=== PATIENT | female | born 1990 | race African-American/Black ===

== ENCOUNTER 2016-09-20 11:42 | Emergency (ER) | payer OTHER ==
[~2016-09-20] VITALS: Ht 165.1 cm; Wt 90.0 kg
[~2016-09-20 11:42] MED LIST: DIAZ5 PO; PERC5TAB12 PO
[2016-09-20 11:44] VITALS: BP 124/63; PULSE 83; RESP 18; TEMP 98.7; O2SAT 98
--- NOTE | 2016-09-20 11:48 | PD ---
Physical Exam Time Seen by Provider: 11:45 Narrative 26yo F c/o chest pain and severe ear pain bilaterally x 2 months. She had pneumonia 2 months ago, was given antibx by [facility], which she finished and says she feels like she still has pneumonia. "A little" SOB, especially in the humidity. Positive test one week ago. LMP August 20. Patient seen in triage. VS reviewed. Awaiting bed placement. Data Data Last Documented VS Vital Signs Date Time Temp Pulse Resp B/P Pulse Ox O2 Delivery O2 Flow Rate FiO2 09/20/16 11:44 98.7 83 18 124/63 98 Room Air MDM Supervised Visit with KATY: Shawnee Cervantes Sep 20, 2016 11:48
--- NOTE | 2016-09-20 12:51 | PD ---
HPI . wants to be check for Pneumonia Chief Complaint: Medical Clearance Time Seen by Provider: 12:51 Travel History International Travel<30 days: No Contact w/Intl Traveler<30days: No Traveled to known affect area: No History of Present Illness HPI 26-year-old female who tells me she took a test this weekend and it popped up positive here with complaints of possible pneumonia. Patient tells me in July 30 of this year she was diagnosed with walking pneumonia for hospital and treated on outpatient basis. She tells me that she is still having symptoms of pneumonia as far as chills. She also reports some pain in her ears that has been going on for 2 mts. She admits to sinus congestion and was told she has fluid in her ears. She is accompanied by her and child. She says Dr. Vang was her telephone station repairer, but will not see her because she has an outstanding balance with him. She has not seen her PCP in 1 year , (Fern WARREN) [facility] Past Medical History Cancer: No Cardiovascular Problems: No Diminished Hearing: No Endocrine: No Gastrointestinal Disorders: Yes (ACID REFLUX) Genitourinary: No Hepatitis: No Hiatal Hernia: No Immune Disorder: No Musculoskeletal: Yes (SCLOIOSIS) Neurologic: No Psychiatric: Yes (ANXIRTY/DEPREAAION) Reproductive: Yes (IUD CAUSING SYMPTOMS) Respiratory: No Immunizations Current: Yes Pneumonia: Yes ?: LMP: 08/20/16 Menopausal: No : 1 Para: 1 Past Surgical History Abdominal Surgery: No Body Medical Devices: NONE Cardiac Surgery: No Section: Yes Ear Surgery: No Endocrine Surgery: No Eye Surgery: No Genitourinary Surgery: No Gynecologic Surgery: Yes (C SECTION) Oral Surgery: No Thoracic Surgery: No Social History Alcohol Use: Yes (rare) Tobacco Use: Yes (cigarette per day) Substance Use: Yes (marijuana) Allergies-Medications (Allergen,Severity, Reaction): Coded Allergies: [place] (Unverified Allergy, Severe, CONGESTION, ITCHING, 12/01/15) Cat Dander (Verified Allergy, Mild, 12/01/15) Dog Dander (Verified Allergy, Mild, 12/01/15) Shellfish (Verified Allergy, Unknown, 12/01/15) SWELLING IN THROAT Reported Meds & Prescriptions Reported Meds & Active Scripts Active Review of Systems General / Constitutional: Positive: Chills, No: Fever Eyes: No: Visual changes HENT: Positive: Earache, No: Headaches Cardiovascular: No: Chest Pain or Discomfort Respiratory: No: Shortness of Breath Gastrointestinal: No: Abdominal Pain Genitourinary: No: Dysuria Musculoskeletal: No: Pain Skin: No Rash Neurologic: No: Weakness Psychiatric: No: Depression Endocrine: No: Polydipsia Hematologic/Lymphatic: No: Easy Bruising Physical Exam Narrative GENERAL: AAO x 3, no acute distress, Well-nourished, well-developed patient. SKIN: Warm and dry. No visible rashes or bruising. HEAD: Normocephalic and atraumatic. EYES: No scleral icterus. No injection or drainage. EOM intact, PERRLA ENT: No nasal drainage noted. Mucous membranes pink. Airway patent. clear effusions b/l NECK: Supple, trachea midline. No JVD. no lymphadenopathy CARDIOVASCULAR: Regular rate and rhythm without murmurs, gallops, or rubs. RESPIRATORY: Breath sounds equal bilaterally. No accessory muscle use. No rhonchi or rales. No wheezing. GASTROINTESTINAL: Abdomen soft, non-tender, nondistended. EXTREMITIES: No cyanosis or edema. BACK: No obvious deformity. NEURO: CN II-12 intact, PSYCH: AAO x 3, normal affect. Data Data Last Documented VS Vital Signs Date Time Temp Pulse Resp B/P Pulse Ox O2 Delivery O2 Flow Rate FiO2 09/20/16 12:52 86 20 117/64 99 Room Air 09/20/16 11:44 98.7 MDM Medical Decision Making Medical Screen Exam Complete: Yes Emergency Medical Condition: Yes Medical Record Reviewed: Yes Differential Diagnosis hx of pneumonia, sinusitis, allergic rhinitis Narrative Course 26-year-old female here with complaints of earache for 2 months as well as history of pneumonia. On examination she does have clear effusions, but does not have any evidence of acute sinus infection. Her lungs are clear. I do not suspect pneumonia. I have discussed the case with my attending Dr. Webber. We do not recommend as patient is telling me she is . We have opted to offer azithromycin outpatient and have her f/u with her PCP and telephone station repairer. Azithromycin will cover both pneumonia and acute sinuitis. I go back and discuss this with the patient. She then tells me that she needs an ultrasound to date her . She says she can't get in with a new primary care doctor or INHALATION THERAPY AIDES TEACHER until she gets an exact date via ultrasound. She was told to come to the emergency room for an ultrasound. I advised her that she was not having any related complaints. She does not have any vaginal bleeding. She then goes on to tell me she is now having cramping and wants an ultrasound. I explained to her that I will not be performing ultrasound to date a . Patient became very upset and started crying. She tells me she keeps getting bad news and no one wants to help her. She pulled off her hospital gown and walked out of the exam room. I asked her if she wanted the antibiotics and she yelled, "NO." Diagnosis Primary Impression: Left against medical advice Disposition: 07 AGAINST MEDICAL ADVICE Condition: Stable Megan Escalona Sep 20, 2016 12:51
[2016-09-20 12:52] VITALS: BP 117/64; PULSE 86; RESP 20; O2SAT 99
[2016-10-04] MEDS ORDERED: PREN1CAP7 PO (15:57)
[2016-10-07] MEDS ORDERED: METR500T10 PO (12:55)
[2016-10-28] MEDS ORDERED: TERC0.8C VAGINAL (16:26)
== END 2016-09-20 13:08 | disposition left against medical advice (07) ==
LOC: NEPD 11:42
DX: R07.9 Chest pain, unspecified (principal)
CPT/HCPCS: 99281

== ENCOUNTER 2016-11-09 12:42 | Emergency (ER) | payer OTHER ==
[~2016-11-09] VITALS: Ht 165.1 cm; Wt 93.0 kg
[~2016-11-09 12:42] MED LIST changes: -DIAZ5 PO; -PERC5TAB12 PO; +PREN1CAP7 PO; +TERC0.8C VAGINAL
[2016-11-09 12:44] VITALS: BP 128/68; PULSE 89; RESP 18; TEMP 98.1; O2SAT 99
--- NOTE | 2016-11-09 12:49 | PD ---
Physical Exam Time Seen by Provider: 12:47 Narrative 11 weeks gestation. History of eczema and allergies. Presents to ED for evaluation of pruritic rash on thighs, arms and chest worsening over the last week. Has swelling lips today. No recent illnesses. No new exposures. No other symptoms. Data Data Last Documented VS Vital Signs Date Time Temp Pulse Resp B/P (MAP) Pulse Ox O2 Delivery O2 Flow Rate FiO2 11/09/16 14:37 85 19 124/62 (82) 100 11/09/16 12:44 98.1 Room Air [facility] Medical Record Reviewed: Yes Supervised Visit with KATY: No Scripts Hydrocortisone Topical (Hydrocortisone Topical) 0.5% Cream 1 APPLIC TOPICAL BID for Rash/Inflammation for 10 Days, #30 GM 0 Refills Apply to affected area(s) Prov: Inge Camara DO 11/09/16 Cromolyn Nasal Inh (Cromolyn Nasal Inh) 5.2 Mg/Act [place] 2 SPRAY EACH NARE TID for Asthma Management for 10 Days, #1 INHALER 0 Refills 1 spray per nostril Prov: Inge Camara DO 11/09/16 Loratadine (Allergy Relief) 10 Mg Tab 10 MG PO DAILY for 30 Days, #30 TAB Prov: Inge Camara DO 11/09/16 Condition: Stable Anju Cuba Nov 09, 2016 12:49
--- NOTE | 2016-11-09 14:28 | PD ---
HPI Chief Complaint: Skin Problem Time Seen by Provider: 14:15 Travel History International Travel<30 days: No Contact w/Intl Traveler<30days: No Traveled to known affect area: No History of Present Illness HPI 26 YO , 11 week (by [place]) female with PMH of preeclampsia (last baby born at 29 weeks) eczema and seasonal allergies presents to the ED for evaluation of 1 week history of pruritic rash of the bilateral thighs, arms and breasts. Patient states that symptoms have worsened over the last week. She states that when she woke up this morning she felt as if her lips were swollen, resolved on presentation. She endorses chronic allergic rhinitis. She denies any breathing difficulties, itchy throat or problems swallowing. She denies any recent illness, new exposures or sick contacts. She denies abdominal pain or vaginal bleeding. She states that she has been taking antihistamines intermittently with no improvement of symptoms. [facility] care by [facility]. PFSH Past Medical History Cancer: No Cardiovascular Problems: No Diminished Hearing: No Endocrine: No Gastrointestinal Disorders: Yes (ACID REFLUX) Genitourinary: No Hepatitis: No Hiatal Hernia: No Immune Disorder: No Musculoskeletal: Yes (SCLOIOSIS) Neurologic: No Psychiatric: Yes (ANXIETY/DEPRESSION) Reproductive: Yes (IUD CAUSING SYMPTOMS) Respiratory: No Immunizations Current: Yes Pneumonia: Yes ?: LMP: 08/20/16 Menopausal: No : 1 Para: 1 Past Surgical History Abdominal Surgery: No Body Medical Devices: NONE Cardiac Surgery: No Section: Yes Ear Surgery: No Endocrine Surgery: No Eye Surgery: No Genitourinary Surgery: No Gynecologic Surgery: Yes (C SECTION) Oral Surgery: No Thoracic Surgery: No Other Surgery: Yes Social History Alcohol Use: Yes (rare) Tobacco Use: No Substance Use: No Allergies-Medications (Allergen,Severity, Reaction): Coded Allergies: tree and shrub pollen (Unverified Allergy, Severe, CONGESTION, ITCHING, ) cat dander (Unverified Allergy, Mild, 11/02/16) dog dander (Unverified Allergy, Mild, 11/02/16) shellfish derived (Unverified Allergy, Unknown, 11/02/16) SWELLING IN THROAT Reported Meds & Prescriptions Reported Meds & Active Scripts Active Hydrocortisone Topical (Hydrocortisone) 0.5% Cream 1 Applic TOPICAL BID 10 Days Apply to affected area(s) Cromolyn Nasal Inh 5.2 Mg/Act [place] 2 [place] EACH NARE TID 10 Days 1 spray per nostril Allergy Relief (Loratadine) 10 Mg Tab 10 Mg PO DAILY 30 Days Terconazole Vaginal Cream 0.8 % Cream 1 Appl VAGINAL HS For 3 days. Citranatal [place] ( W/O Vit A W/ Fe Fumar) 27-1-260 Mg Cap 1 Cap PO DAILY Citranatal Dolph ( W/O Vit A W/ Fe Fumar) 27-1-260 Mg Cap 1 Cap PO DAILY Review of Systems Except as stated in HPI: all other systems reviewed are Neg Physical Exam Narrative GENERAL: Well-nourished, well-developed female in no acute distress. SKIN: Warm and dry. There is a maculopapular, mildly erythematous, blanching, scattered rash on the bilateral inner thighs, inner arms and across the chest. Scattered excoriations. Consistent with atopic dermatitis. HEAD: Normocephalic. Atraumatic. EYES: No scleral icterus. No injection or drainage. PERRLA. EOMI. ENT: Pearly moore tympanic membranes bilaterally. Nasal mucosa is moist. Oropharynx without erythema, edema or exudate. Uvula midline. Floor the mouth is soft. Airway patent. NECK: Supple, trachea midline. No JVD or lymphadenopathy. CARDIOVASCULAR: Regular rate and rhythm without murmurs, gallops, or rubs. RESPIRATORY: Breath sounds clear and equal bilaterally. No accessory muscle use. GASTROINTESTINAL: Abdomen soft, non-tender, nondistended. + Bowel sounds MUSCULOSKELETAL: No cyanosis, or edema. Patient moves extremities spontaneously. She moves easily from standing to sitting position. BACK: Nontender without obvious deformity. No CVA tenderness. Data Data Last Documented VS Vital Signs Date Time Temp Pulse Resp B/P (MAP) Pulse Ox O2 Delivery O2 Flow Rate FiO2 11/09/16 14:37 85 19 124/62 (82) 100 11/09/16 12:44 98.1 Room Air MDM Medical Decision Making Medical Screen Exam Complete: Yes Emergency Medical Condition: Yes Differential Diagnosis atopic dermatitis versus urticaria versus pruritis gravidarum versus allergic rhinitis versus contact dermatitis versus other Narrative Course 26 YO , 11 week (by [place]) female with PMH of preeclampsia (last baby born at 29 weeks) eczema and seasonal allergies presents to the ED for evaluation of 1 week history of pruritic rash of the bilateral thighs, arms and breasts. She states that when she woke up this morning she felt as if her lips were swollen, resolved on presentation. She endorses chronic allergic rhinitis. She denies any breathing difficulties, itchy throat or problems swallowing, recent illness, new exposures, sick contacts, abdominal pain or vaginal bleeding. [facility] visit [facility]/16. Vitals reviewed. Physical exam reveals a well-appearing, overweight black female in no acute distress. The ENT exam reveals bluish, boggy nasal mucosa as well as posterior oropharyngeal cobblestoning. Uvula is midline. The airway is patent. The floor the mouth is soft. She does have a scattered, maculopapular , blanching rash distributed over bilateral inner thighs, bilateral arms and across the chest. No evidence of purpura. Suspect this is atopic dermatitis and seasonal allergies. I reviewed up-to-date for the latest recommendations on atopic dermatitis and . I prescribed 10 mg loratadine daily, 0.5% hydrocortisone cream topically twice a day and cromolyn nasal spray one puff each nostril 3 times a day when necessary. Dr. Camara also evaluated the patient. We advised the patient that if she is uncomfortable with these medications she may take them to her OB for further recommendations. Patient indicated understanding of instructions and is agreeable with the care plan. She is stable and discharged home. Diagnosis Primary Impression: Atopic dermatitis Qualified Codes: L20.9 - Atopic dermatitis, unspecified Additional Impression: Seasonal allergic rhinitis Qualified Codes: J30.2 - Other seasonal allergic rhinitis Referrals: [facility] Patient Instructions: Allergies (ED), Dermatitis (ED), General Instructions Additional Instructions: Rest, hydrate. Take medications as prescribed. Apply the topical cream to affected areas twice a day as prescribed. Avoid hot baths or shower as this can worsen the rash. If you feel uncomfortable taking these medications, please consult with your OB/ FLIGHT TEST SUPERVISOR before administration. Return to the ED for worsening symptoms or any urgent or emergent medical condition. Med/Other Pt SpecificInfo: Prescription(s) given Scripts Hydrocortisone Topical (Hydrocortisone Topical) 0.5% Cream 1 APPLIC TOPICAL BID for Rash/Inflammation for 10 Days, #30 GM 0 Refills Apply to affected area(s) Prov: Inge Camara DO 11/09/16 Cromolyn Nasal Inh (Cromolyn Nasal Inh) 5.2 Mg/Act [place] 2 SPRAY EACH NARE TID for Asthma Management for 10 Days, #1 INHALER 0 Refills 1 spray per nostril Prov: Inge Camara DO 11/09/16 Loratadine (Allergy Relief) 10 Mg Tab 10 MG PO DAILY for 30 Days, #30 TAB Prov: Inge Camara DO 11/09/16 Disposition: 01 DISCHARGE HOME Condition: Stable Tanja Savage Nov 09, 2016 14:28
[2016-11-09] MEDS ORDERED: CROM5.2S4 EACH NARE (14:33)
[2016-11-09] MEDS ORDERED: ALLE10TA PO (14:33)
[2016-11-09] MEDS ORDERED: HYDRO.5%T TOPICAL (14:33)
[2016-11-09 14:37] VITALS: BP 124/62
== END 2016-11-09 15:29 | disposition home or self-care (01) ==
LOC: NEPD 12:42
DX: O99.711 Diseases of the skin and subcutaneous tissue complicating pregnancy, first trimester (principal); L20.9 Atopic dermatitis, unspecified; O99.511 Diseases of the respiratory system complicating pregnancy, first trimester; J30.2 Other seasonal allergic rhinitis; Z3A.11 11 weeks gestation of pregnancy
CPT/HCPCS: 99283

== ENCOUNTER → 2016-11-17 | Outpatient (CLI) | payer OTHER ==
[~2016-11-17] MED LIST changes: +ALLE10TA PO; +CROM5.2S4 EACH NARE; +HYDRO.5%T TOPICAL
== END ==
LOC: HPND 09:42
PROVIDERS: ATTEND Obstetrics & Gynecology
DX: O99.211 Obesity complicating pregnancy, first trimester (principal); O09.291 Supervision of pregnancy with other poor reproductive or obstetric history, first trimester; O09.211 Supervision of pregnancy with history of pre-term labor, first trimester; O34.219 Maternal care for unspecified type scar from previous cesarean delivery; E66.9 Obesity, unspecified; Z68.33 Body mass index [BMI] 33.0-33.9, adult
CPT/HCPCS: 36415; 76813

== ENCOUNTER → 2016-12-22 | Outpatient (CLI) | payer OTHER, MEDICAID ==
[~2016-12-22] MED LIST changes: -ALLE10TA PO; +LORA-650 PO
== END ==
LOC: HPND 10:04
PROVIDERS: ATTEND Obstetrics & Gynecology
DX: O09.292 Supervision of pregnancy with other poor reproductive or obstetric history, second trimester (principal)
CPT/HCPCS: 76811

== ENCOUNTER 2017-01-02 15:02 | Emergency (ER) | payer OTHER, MEDICAID ==
[~2017-01-02] VITALS: Ht 165.1 cm; Wt 98.9 kg
--- NOTE | 2017-01-02 16:00 | PD ---
HPI Chief Complaint cramping Date Seen: Jan 02, 2017 Time Seen: 15:53 Travel History International Travel<30 Days: No Contact w/Intl Traveler<30Days: No Known Affected Area: No History of Present Illness HPI Pt is a 26y/o @ 20.2wks. She has PNC with Dr. Vang. She presents to the hospital with abdominal cramping. She states that she has been having upper abdominal discomfort (located just below xyphoid) and lower pelvic discomfort (one side at a time) for weeks. It is worse at night and not affected by movement. She states that it comes every few hours and lasts for 30 seconds. She denies LOF or VB. Starting to feel FM. Denies dysuria. Weeks Gestation: 28 Para: 1 : 2 History Past Medical History Narrative Medical anxiety / depression Obstetric History Obstetric History G1. at 29 weeks for preE G2. current, on ASA 81mg qday Past Surgical History Narrative Surgical CSx1 wisdom teeth extraction Family History Family History: Negative Social History Alcohol Use: No Tobacco Use: No Substance Abuse: No Allergies-Medications (Allergen,Severity, Reaction): Coded Allergies: tree and shrub pollen (Verified Allergy, Severe, CONGESTION, ITCHING, ) cat dander (Verified Allergy, Mild, 01/02/17) dog dander (Verified Allergy, Mild, 01/02/17) shellfish derived (Verified Allergy, Unknown, 01/02/17) SWELLING IN THROAT Home Meds Active Scripts Hydrocortisone Topical (Hydrocortisone Topical) 0.5% Cream, 1 APPLIC TOPICAL BID for Rash/Inflammation for 10 Days, #30 GM 0 Refills Apply to affected area(s) Prov:Inge Camara DO 11/09/16 Cromolyn Nasal Inh (Cromolyn Nasal Inh) 5.2 Mg/Act [place], 2 SPRAY EACH NARE TID for Asthma Management for 10 Days, #1 INHALER 0 Refills 1 spray per nostril Prov:Inge Camara DO 11/09/16 Loratadine (Allergy Relief) 10 Mg Tab, 10 MG PO DAILY for 30 Days, #30 TAB Prov:Inge Camara DO 11/09/16 Terconazole Vaginal Cream (Terconazole Vaginal Cream) 0.8 % Cream, 1 APPL VAGINAL HS for Fungal Infection, #20 GM 0 Refills For 3 days. Prov:Aurea Bose CNM [facility] 10/28/16 W/O Vit A W/ Fe Fumar (Citranatal [place]) 27-1-260 Mg Cap, 1 CAP PO DAILY for Nutritional Supplement, #30 CAP 0 Refills Prov:Aurea Bose CNM [facility] 10/04/16 W/O Vit A W/ Fe Fumar (Citranatal [place]) 27-1-260 Mg Cap, 1 CAP PO DAILY for Nutritional Supplement, #30 CAP 0 Refills Prov:Aurea Bose CNM [facility] 10/04/16 Review of Systems Except as stated in HPI: all other systems reviewed are Neg Physical Exam Narrative General: well developed, well nourished, no acute distress HEENT: normocephalic atraumatic, extraocular movements intact, neck supple Abdomen: soft, gravid, nontender, nondistended Uterus: fundus soft Extremities: full range of motion Skin: normal coloration, no rashes, no suspicious skin lesions noted Neurologic: cranial nerves 2-12 grossly intact, normal muscle tone, normal gait Psychiatric: normal mood and affect, appropriate FHTs: present Earlimart: quiet Cvx: deferred Data Data Vital Signs Reviewed: Yes Orders Orders Vital Signs (Adult) .ON ADMISSION (01/02/17 15:44) ^ Labor Status (01/02/17 15:44) Urinalysis - C+S If Indicated (01/02/17 15:44) Labs Laboratory Tests Test 01/02/17 15:20 MDM Plan 26y/o @ 20.2wks with cramping. -- UA -- toco quiet -- +FCA -- may be adhesive disease or round ligament pain -- BPs normal Dispo: stable for d/c home with precautions Diagnosis Diagnosis: Primary Impression: 20 weeks gestation of Additional Impressions: History of delivery History of delivery, currently in second trimester History of pre-eclampsia in prior , currently in second trimester Abdominal cramping affecting , antepartum Brendon Coffey MD Jan 02, 2017 16:00
[2017-01-02 16:19] LABS: BLOOD, URINE MOD (NEG); COMMENT (UR) CULT NOT INDICATED; CULTURE IF INDICATED CULT NOT INDICATED; GLUCOSE,URINE NEG (NEG); KETONE, URINE NEG (NEG); MUCUS URINE FEW /lpf (OCC); NITRITE,URINE NEG (NEG); PH, URINE 6.5 (5.0-8.5); SQUAMOUS EPITHELIAL CELL URINE 9 /hpf (0-5); URINE COLOR YELLOW (YELLW/STRAW)
== END 2017-01-02 16:46 | disposition home or self-care (01) ==
LOC: HOBED 15:02
DX: O26.892 Other specified pregnancy related conditions, second trimester (principal); Z3A.20 20 weeks gestation of pregnancy
CPT/HCPCS: 81001; 99284

== ENCOUNTER 2017-01-23 10:18 | Emergency (ER) | payer OTHER, MEDICAID ==
--- NOTE | 2017-01-23 11:01 | PD ---
HPI Chief Complaint Crampy abdominal pain for a month Date Seen: Jan 23, 2017 Time Seen: 10:55 Travel History International Travel<30 Days: No Contact w/Intl Traveler<30Days: No Known Affected Area: No History of Present Illness HPI Patient is 26-year-old black female at [address] Vang for care. She presents complaining of lower abdominal pain crampy in nature for a-month waxes and wanes and her doctor told her to come in the ED if it happened again so she is here. She complains of pain in the lower abdomen bilaterally about the same she is moaning and moving somewhat , heart rate tracing is within normal limits for 23 weeks and no contractions seen Weeks Gestation: 23 Para: 1 : 2 History Obstetric History Obstetric History She had a at 29 weeks for severe preeclampsia last time was not labor but the hypertensive disorder that caused her delivery Past Surgical History Narrative Surgical 1 Family History Family History: Social History Alcohol Use: No Tobacco Use: No Substance Abuse: No Allergies-Medications (Allergen,Severity, Reaction): Coded Allergies: tree and shrub pollen (Verified Allergy, Severe, CONGESTION, ITCHING, ) cat dander (Verified Allergy, Mild, 01/02/17) dog dander (Verified Allergy, Mild, 01/02/17) shellfish derived (Verified Allergy, Unknown, 01/02/17) SWELLING IN THROAT Home Meds Active Scripts Acetaminophen-Codeine (Tylenol-Codeine #3) 300-30 mg Tab, 1-2 TAB PO Q6H Y for PAIN for 7 Days, #20 TAB 0 Refills Prov:Piyush Springer II, MD 01/23/17 Hydrocortisone Topical (Hydrocortisone Topical) 0.5% Cream, 1 APPLIC TOPICAL BID for Rash/Inflammation for 10 Days, #30 GM 0 Refills Apply to affected area(s) Prov:Inge Camara DO 11/09/16 Cromolyn Nasal Inh (Cromolyn Nasal Inh) 5.2 Mg/Act [place], 2 SPRAY EACH NARE TID for Asthma Management for 10 Days, #1 INHALER 0 Refills 1 spray per nostril Prov:Inge Camara DO 11/09/16 Loratadine (Allergy Relief) 10 Mg Tab, 10 MG PO DAILY for 30 Days, #30 TAB Prov:Inge Camara DO 11/09/16 Terconazole Vaginal Cream (Terconazole Vaginal Cream) 0.8 % Cream, 1 APPL VAGINAL HS for Fungal Infection, #20 GM 0 Refills For 3 days. Prov:BoseAurea [facility]oo[facility] 10/28/16 W/O Vit A W/ Fe Fumar (Citranatal [place]) 27-1-260 Mg Cap, 1 CAP PO DAILY for Nutritional Supplement, #30 CAP 0 Refills Prov:[facility] 10/04/16 W/O Vit A W/ Fe Fumar (Citranatal [place]) 27-1-260 Mg Cap, 1 CAP PO DAILY for Nutritional Supplement, #30 CAP 0 Refills Prov:Aurea Bose [facility] 10/04/16 Review of Systems General / Constitutional: No: Fever, Weight Gain, Chills, Other Eyes: No: Diploplia, Blurred Vision, Visual changes, Pain, Photophobia HENT: No: Headaches, Vertigo, Lightheadedness Cardiovascular: No: Irregular Rhythm, Chest Pain or Discomfort, Palpitations, Tachycardia, Syncope, Varicosities, Edema, Cyanosis Respiratory: No: Cough, Short of Breath, Other Gastrointestinal: Abdominal Pain, No: Nausea, Vomiting, Diarrhea Genitourinary: No: Decreased Urinary Output, Oliguria Musculoskeletal: No: Limited ROM, Weakness, Cramping, Edema, Pain Skin: No Rash, No Itching, No Dryness, No Lumps, No Change in Pigmentation, No Change in Nails, No Alopecia, No Lesions Neurologic: No: Weakness, Dizziness, Syncope, Focal Abnormalities, Coordination Problem, Headache, Slurred Speech, Seizures Psychiatric: No: Depression, Suicidal Ideations, Homicidal Ideation Endocrine: No: Heat Intolerance, Cold Intolerance, Polydipsia, Polyuria, Other Physical Exam Narrative GENERAL: Well-nourished, well-developed patient. SKIN: Warm and dry. HEAD: Normocephalic and atraumatic. EYES: No scleral icterus. No injection or drainage. ENT: No nasal drainage noted. Mucous membranes pink. Airway patent. NECK: Supple, trachea midline. No JVD. CARDIOVASCULAR: Regular rate and rhythm without murmurs, gallops, or rubs. RESPIRATORY: Breath sounds equal bilaterally. No accessory muscle use. BREASTS: Bilateral exam showed no masses , no retractions, no nipple discharge. ABDOMEN/GI: Abdomen soft, 1+-tender, bowel sounds present, no rebound, no guarding Gravid to [23-] weeks size Fundal Height: [near umbilicus-] GENITOURINARY: External Genitalia: intact and normal in appearance BUS glands: [-] Cervix: [-] Dilatation: [-Closed] Effacement: [-thick] Station: [high-] Membranes: [intact ] Uterine Contractions: [none-] FHT's: Category: [-1] Baseline: [133-] Reactive: [yes for 23 wks-] Variability: [mod-] Decels: [-0] EXTREMITIES: No cyanosis or edema. BACK: Nontender without obvious deformity. No CVA tenderness. NEUROLOGICAL: Awake and alert. Motor and sensory grossly within normal limits. Five out of 5 muscle strength in all muscle groups. Normal speech. Data Data Labs Urine dipstick on OB ED is negative except for large amount of blood MDM Interpretation(s) 26-year-old white female at [address] Vang for care presents complaining of lower abdominal pain for months now comes and goes with his bad now she describes is a 8 or 9 out of 10, she has no contractions and cervix is closed very high. OB ED urine dipstick shows all negative except for large amount of occult blood and this could be a small kidney stone she's trying to pass but there is no infection there , heart tones are within normal limits that she's not romero Plan The patient to receive IV Demerol Phenergan and that has helped quite a bit with her pain. That also home with Tylenol 3 for pain. She is to increase her fluids and pushes fluids to flush bladder; flush out that stone if present, increased bedrest heating pad lower lower abdomen or cervix soaking in a hot bath if pain is not better in the next 48 hours she needs to see Dr. Vang for further care possibly a renal ultrasound or pyelogram Diagnosis Diagnosis: Primary Impression: Bilateral lower abdominal cramping Additional Impressions: Previous section 23 weeks gestation of Renal stone Disposition: DISCHARGE HOME Condition: Stable Scripts Acetaminophen-Codeine (Tylenol-Codeine #3) 300-30 mg Tab 1-2 TAB PO Q6H Y for PAIN for 7 Days, #20 TAB 0 Refills Prov: Piyush Springer II, MD 01/23/17 Piyush Springer II, MD Jan 23, 2017 11:01
[2017-01-23] MEDS ORDERED: MEPERIDINE HCL 50 MG/ML VIAL IM ONE (11:15)
[2017-01-23] MEDS ORDERED: PROMETHAZINE INJ 25 MG/ML VIAL IM ONE (11:15)
[2017-01-23] MEDS ORDERED: TYLETAB34 PO (11:52)
[2017-01-23 12:25] LABS: BACTERIA, URINE RARE /hpf; BILIRUBIN, URINE NEG (NEG); BLOOD, URINE LARGE (NEG); GLUCOSE,URINE NEG (NEG); KETONE, URINE NEG (NEG); MUCUS URINE FEW /lpf (OCC); NITRITE,URINE NEG (NEG); SQUAMOUS EPITHELIAL CELL URINE 1 /hpf (0-5); URINE COLOR YELLOW (YELLW/STRAW); URINE LEUKOCYTE ESTERASE NEG (NEG)
== END 2017-01-23 14:05 | disposition home or self-care (01) ==
LOC: HOBED 10:18
DX: O26.892 Other specified pregnancy related conditions, second trimester (principal); R10.30 Lower abdominal pain, unspecified; N20.0 Calculus of kidney; Z3A.23 23 weeks gestation of pregnancy; Z79.899 Other long term (current) drug therapy
CPT/HCPCS: 81001; 96372; 99284; J2175; J2550

== ENCOUNTER → 2017-02-10 | Outpatient (CLI) | payer OTHER, MEDICAID ==
[~2017-02-10] MED LIST changes: +TYLETAB34 PO
== END ==
LOC: HPND 10:10
PROVIDERS: ATTEND Obstetrics & Gynecology
DX: O09.292 Supervision of pregnancy with other poor reproductive or obstetric history, second trimester (principal)
CPT/HCPCS: 76816

== ENCOUNTER 2017-03-13 15:23 | Emergency (ER) | payer MEDICAID, OTHER ==
--- NOTE | 2017-03-13 16:35 | PD ---
HPI Chief Complaint pelvic pressure Date Seen: Mar 13, 2017 Time Seen: 16:32 Travel History International Travel<30 Days: No Contact w/Intl Traveler<30Days: No Known Affected Area: No History of Present Illness HPI Pt is a 26t/o @ 30.2wks. She has PNC with Dr. Vang. She presented for evaluation b/c she woke up this morning and felt pelvic pressure/pain in the vagina. She denies LOF, VB, ctx. +FM. is c/b h/o CS x1 at 29wks for severe preE. She is on ASA 81mg qday. Weeks Gestation: 30 Para: 1 : 2 History Past Medical History Medical History: Denies Significant Hx Obstetric History Obstetric History 1. 29wk c/s for severe preE 2. current Past Surgical History Narrative Surgical c/s x1 wisdom teeth extraction Family History Family History: Negative Social History Alcohol Use: Yes (quit with ) Tobacco Use: No Substance Abuse: No Allergies-Medications (Allergen,Severity, Reaction): Coded Allergies: tree and shrub pollen (Verified Allergy, Severe, CONGESTION, ITCHING, ) cat dander (Verified Allergy, Mild, 01/02/17) dog dander (Verified Allergy, Mild, 01/02/17) shellfish derived (Verified Allergy, Unknown, 01/02/17) SWELLING IN THROAT Home Meds Active Scripts Acetaminophen-Codeine (Tylenol-Codeine #3) 300-30 mg Tab, 1-2 TAB PO Q6H Y for PAIN for 7 Days, #20 TAB 0 Refills Prov:Piyush Springer II, MD 01/23/17 Hydrocortisone Topical (Hydrocortisone Topical) 0.5% Cream, 1 APPLIC TOPICAL BID for Rash/Inflammation for 10 Days, #30 GM 0 Refills Apply to affected area(s) Prov:Inge Camara DO 11/09/16 Cromolyn Nasal Inh (Cromolyn Nasal Inh) 5.2 Mg/Act [place], 2 SPRAY EACH NARE TID for Asthma Management for 10 Days, #1 INHALER 0 Refills 1 spray per nostril Prov:Inge Camara DO 11/09/16 Loratadine (Allergy Relief) 10 Mg Tab, 10 MG PO DAILY for 30 Days, #30 TAB Prov:Inge Camara DO 11/09/16 Terconazole Vaginal Cream (Terconazole Vaginal Cream) 0.8 % Cream, 1 APPL VAGINAL HS for Fungal Infection, #20 GM 0 Refills For 3 days. Prov:Aurea Bose CNM [facility] 10/28/16 W/O Vit A W/ Fe Fumar (Citranatal [place]) 27-1-260 Mg Cap, 1 CAP PO DAILY for Nutritional Supplement, #30 CAP 0 Refills Prov:Aurea Bose CNM [facility] 10/04/16 W/O Vit A W/ Fe Fumar (Citranatal [place]) 27-1-260 Mg Cap, 1 CAP PO DAILY for Nutritional Supplement, #30 CAP 0 Refills Prov:Aurea Bose CNM [facility] 10/04/16 Review of Systems Except as stated in HPI: all other systems reviewed are Neg Physical Exam Narrative General: well developed, well nourished, no acute distress HEENT: normocephalic atraumatic, extraocular movements intact, neck supple Abdomen: soft, gravid, nontender, nondistended Extremities: full range of motion Skin: normal coloration, no rashes, no suspicious skin lesions noted Neurologic: cranial nerves 2-12 grossly intact, normal muscle tone, normal gait Psychiatric: normal mood and affect, appropriate FHTs: 130s, +accels, no decels, moderate variability, reactive [place]: quiet Cvx: closed/thick Data Data Vital Signs Reviewed: Yes Orders Orders Vital Signs (Adult) .ON ADMISSION (03/13/17 16:30) ^ Labor Status (03/13/17 16:30) Urinalysis - C+S If Indicated (03/13/17 16:30) ^ Non Stress Test (03/13/17 16:30) MDM Plan 26y/o @ 30.2wks with pelvic pressure. -- toco quiet -- cvx cl/th/hi -- UA sent -- FHTs cat 1 Dispo: pending UA will d/c home with precautions Diagnosis Diagnosis: Primary Impression: 30 weeks gestation of Additional Impressions: Pelvic pressure in History of History of pre-eclampsia in prior , currently in third trimester Brendon Coffey MD Mar 13, 2017 16:35
[2017-03-13 16:47] LABS: AMORPHOUS SEDIMENT, URINE RARE; BILIRUBIN, URINE NEG (NEG); BLOOD, URINE TRACE (NEG); GLUCOSE,URINE NEG (NEG); KETONE, URINE NEG (NEG); MUCUS URINE FEW /lpf (OCC); NITRITE,URINE NEG (NEG); SQUAMOUS EPITHELIAL CELL URINE 10 /hpf (0-5); URINE COLOR YELLOW (YELLW/STRAW); URINE LEUKOCYTE ESTERASE NEG (NEG)
== END 2017-03-13 17:14 | disposition home or self-care (01) ==
LOC: HOBED 15:23
DX: O26.893 Other specified pregnancy related conditions, third trimester (principal); R10.2 Pelvic and perineal pain; Z3A.30 30 weeks gestation of pregnancy
CPT/HCPCS: 81001; 99284

== ENCOUNTER → 2017-03-21 | Outpatient (CLI) | payer OTHER, MEDICAID | LOC: HPND 09:48 | PROVIDERS: ATTEND Obstetrics & Gynecology | DX: O09.292 Supervision of pregnancy with other poor reproductive or obstetric history, second trimester (principal) | CPT/HCPCS: 76816 ==

== ENCOUNTER 2017-04-05 12:43 | Emergency (ER) | payer OTHER, MEDICAID ==
[2017-04-05 13:59] LABS: HEMATOCRIT 30.3 % (35.0-46.0); HEMOGLOBIN 10.1 GM/DL (11.6-15.3); MEAN CELL VOLUME 71.5 FL (80.0-100.0); MEAN CORPUSCULAR HEMOGLOBIN 23.8 PG (27.0-34.0); MEAN CORPUSCULAR HGB CONC 33.2 % (32.0-36.0); MEAN PLATELET VOLUME 9.2 FL (7.0-11.0); PLATELET COUNT 196 TH/MM3 (150-450); RED BLOOD COUNT 4.23 MIL/MM3 (4.00-5.30); RED CELL DISTRIBUTION WIDTH 15.2 % (11.6-17.2); WHITE BLOOD COUNT 6.8 TH/MM3 (4.0-11.0)
[2017-04-05 14:04] LABS: BILIRUBIN, URINE NEG (NEG); BLOOD, URINE TRACE (NEG); GLUCOSE,URINE NEG (NEG); KETONE, URINE NEG (NEG); MUCUS URINE FEW /lpf (OCC); NITRITE,URINE NEG (NEG); SQUAMOUS EPITHELIAL CELL URINE 5 /hpf (0-5); URINE COLOR YELLOW (YELLW/STRAW); URINE LEUKOCYTE ESTERASE NEG (NEG)
[2017-04-05 14:22] LABS: ALBUMIN 2.4 GM/DL (3.4-5.0); AST (GOT) 10 U/L (15-37); BICARBONATE 24.3 MEQ/L (21.0-32.0); BLOOD UREA NITROGEN 8 MG/DL (7-18); CALCIUM 8.8 MG/DL (8.5-10.1); CHLORIDE 106 MEQ/L (98-107); CREATININE 0.57 MG/DL (0.50-1.00); GLOMERULAR FILTRATION RATE 156 ML/MIN (>89); GLUCOSE,RANDOM 84 MG/DL (74-106); SODIUM (NA) 137 MEQ/L (136-145)
[2017-04-05 14:24] LABS: ALT (GPT) 10 U/L (10-53)
[2017-04-05 14:26] LABS: ALKALINE PHOSPHATASE 247 U/L (45-117); TOTAL BILIRUBIN ADULT 0.1 MG/DL (0.2-1.0); TOTAL PROTEIN 7.2 GM/DL (6.4-8.2)
--- NOTE | 2017-04-05 14:53 | PD ---
HPI Chief Complaint History of preeclampsia with borderline blood pressures this Date Seen: Apr 05, 2017 Time Seen: 14:00 Travel History International Travel<30 Days: No Contact w/Intl Traveler<30Days: No Known Affected Area: No History of Present Illness HPI This 27-year-old black female at 33 weeks PCS, sees Dr. Vang care and he is asked for the patient to come to OB dating her PIH labs drawn, he is worried she may can get preeclamptic with this her blood pressures are stable at this time she has a history of severe preeclampsia requiring delivery and in the past. Her only complaint is spots in front of her eyes over the last several weeks but only very minimal headache and no other symptoms no pain. She has had some swelling in her legs but very minimal, the baby is active heart rate tracing is reactive in the note contractions Weeks Gestation: 33 Para: 1 : 2 History Obstetric History Obstetric History 1 for severe preeclampsia Past Surgical History Narrative Surgical Social History Alcohol Use: No Tobacco Use: No Substance Abuse: No Allergies-Medications (Allergen,Severity, Reaction): Coded Allergies: tree and shrub pollen (Verified Allergy, Severe, CONGESTION, ITCHING, ) cat dander (Verified Allergy, Mild, 01/02/17) dog dander (Verified Allergy, Mild, 01/02/17) shellfish derived (Verified Allergy, Unknown, 01/02/17) SWELLING IN THROAT Home Meds Active Scripts Acetaminophen-Codeine (Tylenol-Codeine #3) 300-30 mg Tab, 1-2 TAB PO Q6H Y for PAIN for 7 Days, #20 TAB 0 Refills Prov:Piyush Springer II, MD 01/23/17 Hydrocortisone Topical (Hydrocortisone Topical) 0.5% Cream, 1 APPLIC TOPICAL BID for Rash/Inflammation for 10 Days, #30 GM 0 Refills Apply to affected area(s) Prov:Inge Camara DO 11/09/16 Cromolyn Nasal Inh (Cromolyn Nasal Inh) 5.2 Mg/Act [place], 2 SPRAY EACH NARE TID for Asthma Management for 10 Days, #1 INHALER 0 Refills 1 spray per nostril Prov:Inge Camara DO 11/09/16 W/O Vit A W/ Fe Fumar (Citranatal [place]) 27-1-260 Mg Cap, 1 CAP PO DAILY for Nutritional Supplement, #30 CAP 0 Refills Prov:BoseAurea CNM [facility] 10/04/16 Discontinued Scripts Loratadine (Allergy Relief) 10 Mg Tab, 10 MG PO DAILY for 30 Days, #30 TAB Prov:JaxInge 11/09/16 Terconazole Vaginal Cream (Terconazole Vaginal Cream) 0.8 % Cream, 1 APPL VAGINAL HS for Fungal Infection, #20 GM 0 Refills For 3 days. Prov:Aurea Bose CNM [facility] 10/28/16 W/O Vit A W/ Fe Fumar (Citranatal [place]) 27-1-260 Mg Cap, 1 CAP PO DAILY for Nutritional Supplement, #30 CAP 0 Refills Prov:Aurea Bose CNM [facility] 10/04/16 Review of Systems General / Constitutional: No: Fever, Weight Gain, Chills, Other Eyes: Visual changes, No: Diploplia, Blurred Vision, Pain, Photophobia HENT: No: Headaches, Vertigo, Lightheadedness Cardiovascular: No: Irregular Rhythm, Chest Pain or Discomfort, Palpitations, Tachycardia, Syncope, Varicosities, Edema, Cyanosis Respiratory: No: Cough, Short of Breath, Other Gastrointestinal: No: Nausea, Vomiting, Diarrhea Genitourinary: No: Decreased Urinary Output, Oliguria Musculoskeletal: No: Limited ROM, Weakness, Cramping, Edema, Pain Skin: No Rash, No Itching, No Dryness, No Lumps, No Change in Pigmentation, No Change in Nails, No Alopecia, No Lesions Neurologic: No: Weakness, Dizziness, Syncope, Focal Abnormalities, Coordination Problem, Headache, Slurred Speech, Seizures Psychiatric: No: Depression, Suicidal Ideations, Homicidal Ideation Endocrine: No: Heat Intolerance, Cold Intolerance, Polydipsia, Polyuria, Other Physical Exam Narrative GENERAL: Well-nourished, well-developed patient. SKIN: Warm and dry. HEAD: Normocephalic and atraumatic. EYES: No scleral icterus. No injection or drainage. ENT: No nasal drainage noted. Mucous membranes pink. Airway patent. NECK: Supple, trachea midline. No JVD. CARDIOVASCULAR: Regular rate and rhythm without murmurs, gallops, or rubs. RESPIRATORY: Breath sounds equal bilaterally. No accessory muscle use. BREASTS: Bilateral exam showed no masses , no retractions, no nipple discharge. ABDOMEN/GI: Abdomen soft, non-tender, bowel sounds present, no rebound, no guarding Gravid to [-33] weeks size Fundal Height: [33-] GENITOURINARY: External Genitalia: intact and normal in appearance Membranes: [intact ] Uterine Contractions: [none-] FHT's: Category: [1-] Baseline: [-133] Reactive: [R-] Variability: [-mod] Decels: [-none] EXTREMITIES: No cyanosis or edema. BACK: Nontender without obvious deformity. No CVA tenderness. NEUROLOGICAL: Awake and alert. Motor and sensory grossly within normal limits. Five out of 5 muscle strength in all muscle groups. Normal speech. Data Data Orders Orders Cbc No Diff, Includes Plts (04/05/17 13:36) Comprehensive Metabolic Panel (04/05/17 13:36) Uric Acid (04/05/17 13:36) Urinalysis - C+S If Indicated (04/05/17 13:36) Labs Laboratory Tests Test 04/05/17 13:48 White Blood Count 6.8 Red Blood Count 4.23 Hemoglobin 10.1 Hematocrit 30.3 Mean Corpuscular Volume 71.5 Mean Corpuscular Hemoglobin 23.8 Mean Corpuscular Hemoglobin Concent 33.2 Red Cell Distribution Width 15.2 Platelet Count 196 Mean Platelet Volume 9.2 Urine Color YELLOW Urine Turbidity HAZY Urine pH 7.0 Urine Specific [place] 1.023 Urine Protein 30 Urine Glucose (UA) NEG Urine Ketones NEG Urine Occult Blood TRACE Urine Nitrite NEG Urine Bilirubin NEG Urine Urobilinogen LESS THAN 2.0 Urine Leukocyte Esterase NEG Urine RBC 1 Urine WBC 1 Urine Squamous Epithelial Cells 5 Urine Mucus FEW Microscopic Urinalysis Comment CULT NOT INDICATED Blood Urea Nitrogen 8 Creatinine 0.57 Random Glucose 84 Total Protein 7.2 Albumin 2.4 Calcium Level 8.8 Uric Acid 3.0 Alkaline Phosphatase 247 Aspartate Amino Transf (AST/SGOT) 10 Alanine Aminotransferase (ALT/SGPT) 10 Total Bilirubin 0.1 Sodium Level 137 Potassium Level 3.9 Chloride Level 106 Carbon Dioxide Level 24.3 Anion Gap 7 Estimat Glomerular Filtration Rate 156 MDM Interpretation(s) Patient is 27-year-old white female at 33 weeks [address] over [address]. Vang for PIH lab and rule out preeclampsia. Patient is having only some visual changes in the form of spots in front of her eyes but she is having no significant headaches abdominal pain ,malaise, significant swelling. Baby is active heart tracing is reactive and there are no regular contractions. PIH labs all within normal limits, urinalysis showed trace protein Plan Plan the patient to be discharged today home to increase her wrist as much as possible at home she does not have anything specific that would force her to bedrest but she needs to start trying to do more of that with her potential PIH issues and her history of severe preeclampsia it is best that she start to begin resting as much as she can Diagnosis Diagnosis: Primary Impression: History of pre-eclampsia in prior , currently Additional Impression: Previous section Disposition: DISCHARGE HOME Condition: Stable Piyush Springer II, MD Apr 05, 2017 14:53
== END 2017-04-05 15:10 | disposition home or self-care (01) ==
LOC: HOBED 12:43
DX: Z71.1 Person with feared health complaint in whom no diagnosis is made (principal); Z87.59 Personal history of other complications of pregnancy, childbirth and the puerperium; Z3A.33 33 weeks gestation of pregnancy
CPT/HCPCS: 36415; 59025; 80053; 81001; 84550; 85027

== ENCOUNTER 2017-04-12 12:01 | Emergency (ER) | payer OTHER, MEDICAID ==
[~2017-04-12 12:01] MED LIST changes: -LORA-650 PO; -TERC0.8C VAGINAL
[2017-04-12 14:12] LABS: HEMATOCRIT 31.1 % (35.0-46.0); HEMOGLOBIN 10.2 GM/DL (11.6-15.3); MEAN CELL VOLUME 72.1 FL (80.0-100.0); MEAN CORPUSCULAR HEMOGLOBIN 23.7 PG (27.0-34.0); MEAN PLATELET VOLUME 9.9 FL (7.0-11.0); PLATELET COUNT 199 TH/MM3 (150-450); RED BLOOD COUNT 4.32 MIL/MM3 (4.00-5.30); RED CELL DISTRIBUTION WIDTH 15.7 % (11.6-17.2); WHITE BLOOD COUNT 8.2 TH/MM3 (4.0-11.0)
[2017-04-12 14:25] LABS: BACTERIA, URINE OCC /hpf; BILIRUBIN, URINE NEG (NEG); BLOOD, URINE TRACE (NEG); CALCIUM OXALATE CRYSTALS,URINE MOD /hpf; GLUCOSE,URINE NEG (NEG); KETONE, URINE NEG (NEG); MUCUS URINE MANY /lpf (OCC); NITRITE,URINE NEG (NEG); PH, URINE 6.5 (5.0-8.5); SQUAMOUS EPITHELIAL CELL URINE 21 /hpf (0-5); URINE COLOR YELLOW (YELLW/STRAW); URINE LEUKOCYTE ESTERASE NEG (NEG)
[2017-04-12 14:33] LABS: ALBUMIN 2.4 GM/DL (3.4-5.0); AST (GOT) 11 U/L (15-37); BICARBONATE 20.5 MEQ/L (21.0-32.0); BLOOD UREA NITROGEN 9 MG/DL (7-18); CALCIUM 8.4 MG/DL (8.5-10.1); CHLORIDE 105 MEQ/L (98-107); CREATININE 0.58 MG/DL (0.50-1.00); GLOMERULAR FILTRATION RATE 153 ML/MIN (>89); GLUCOSE,RANDOM 89 MG/DL (74-106); SODIUM (NA) 136 MEQ/L (136-145)
[2017-04-12 14:37] LABS: ALKALINE PHOSPHATASE 252 U/L (45-117); ALT (GPT) 10 U/L (10-53); TOTAL BILIRUBIN ADULT 0.2 MG/DL (0.2-1.0); TOTAL PROTEIN 7.4 GM/DL (6.4-8.2)
--- NOTE | 2017-04-12 16:28 | PD ---
HPI Chief Complaint increased bp Date Seen: Apr 12, 2017 Time Seen: 16:18 Travel History International Travel<30 Days: No Contact w/Intl Traveler<30Days: No Known Affected Area: No History of Present Illness HPI pt. is a @ 34 4/7 weeks present as a referral from dr. teresa 2/2 increased bp. pt. w/ h/o severe preeclampsia in last preg w/ delivery by cd @ 29 weeks. pt. w/ noted increased bp, c/o gabriel. on presentation, pt. states gabriel and scotomata. pt. states some ctxs. +FM, no lof/vb. bp on presentation 130/72 Weeks Gestation: 34 Para: 1 : 2 History Past Medical History Medical History: Denies Significant Hx Obstetric History Obstetric History severe preeclampsia and cd in last Past Surgical History Narrative Surgical delivery Family History Family History: Negative Social History Alcohol Use: No Tobacco Use: No Substance Abuse: No Allergies-Medications (Allergen,Severity, Reaction): Coded Allergies: tree and shrub pollen (Verified Allergy, Severe, CONGESTION, ITCHING, ) cat dander (Verified Allergy, Mild, 01/02/17) dog dander (Verified Allergy, Mild, 01/02/17) shellfish derived (Verified Allergy, Unknown, 01/02/17) SWELLING IN THROAT Home Meds Active Scripts Acetaminophen-Codeine (Tylenol-Codeine #3) 300-30 mg Tab, 1-2 TAB PO Q6H Y for PAIN for 7 Days, #20 TAB 0 Refills Prov:Piyush Springer II, MD 01/23/17 Hydrocortisone Topical (Hydrocortisone Topical) 0.5% Cream, 1 APPLIC TOPICAL BID for Rash/Inflammation for 10 Days, #30 GM 0 Refills Apply to affected area(s) Prov:Inge Camara DO 11/09/16 Cromolyn Nasal Inh (Cromolyn Nasal Inh) 5.2 Mg/Act [place], 2 SPRAY EACH NARE TID for Asthma Management for 10 Days, #1 INHALER 0 Refills 1 spray per nostril Prov:Inge Camara DO 11/09/16 W/O Vit A W/ Fe Fumar (Citranatal [place]) 27-1-260 Mg Cap, 1 CAP PO DAILY for Nutritional Supplement, #30 CAP 0 Refills Prov:Aurea Bose [facility] 10/04/16 Discontinued Scripts Loratadine (Allergy Relief) 10 Mg Tab, 10 MG PO DAILY for 30 Days, #30 TAB Prov:Franchesca Camaraie 11/09/16 Terconazole Vaginal Cream (Terconazole Vaginal Cream) 0.8 % Cream, 1 APPL VAGINAL HS for Fungal Infection, #20 GM 0 Refills For 3 days. Prov:David Boseinta Haseeb JULES [facility] 10/28/16 W/O Vit A W/ Fe Fumar (Citranatal [place]) 27-1-260 Mg Cap, 1 CAP PO DAILY for Nutritional Supplement, #30 CAP 0 Refills Prov:David Boseintneeta Membreno TRES[facility] 10/04/16 Review of Systems Except as stated in HPI: all other systems reviewed are Neg Physical Exam Narrative GENERAL: Well-nourished, well-developed patient. SKIN: Warm and dry. HEAD: Normocephalic and atraumatic. EYES: No scleral icterus. No injection or drainage. ENT: No nasal drainage noted. Mucous membranes pink. Airway patent. NECK: Supple, trachea midline. No JVD. CARDIOVASCULAR: Regular rate and rhythm without murmurs, gallops, or rubs. RESPIRATORY: Breath sounds equal bilaterally. No accessory muscle use. ABDOMEN/GI: Abdomen soft, non-tender, bowel sounds present, no rebound, no guarding Gravid FHT's: Category: 1 Reactive: + Variability: mod Decels: none EXTREMITIES: No cyanosis or edema. BACK: Nontender without obvious deformity. No CVA tenderness. NEUROLOGICAL: Awake and alert. Motor and sensory grossly within normal limits. Five out of 5 muscle strength in all muscle groups. Normal speech. Data Data Vital Signs Reviewed: Yes Orders Orders Cbc No Diff, Includes Plts (04/12/17 13:44) Comprehensive Metabolic Panel (04/12/17 13:44) Uric Acid (04/12/17 13:44) Urinalysis - C+S If Indicated (04/12/17 13:44) Protein Creat Ratio, Random Ur (04/12/17 14:34) Labs Laboratory Tests Test 04/12/17 13:27 White Blood Count 8.2 Red Blood Count 4.32 Hemoglobin 10.2 Hematocrit 31.1 Mean Corpuscular Volume 72.1 Mean Corpuscular Hemoglobin 23.7 Mean Corpuscular Hemoglobin Concent 33.0 Red Cell Distribution Width 15.7 Platelet Count 199 Mean Platelet Volume 9.9 Urine Color YELLOW Urine Turbidity HAZY Urine pH 6.5 Urine Specific [place] 1.028 Urine Protein 30 Urine Glucose (UA) NEG Urine Ketones NEG Urine Occult Blood TRACE Urine Nitrite NEG Urine Bilirubin NEG Urine Urobilinogen 2.0 Urine Leukocyte Esterase NEG Urine RBC 3 Urine WBC 3 Urine Squamous Epithelial Cells 21 Urine Calcium Oxalate Crystals MOD Urine Bacteria OCC Urine Mucus MANY Microscopic Urinalysis Comment CULT NOT INDICATED Urine Random Creatinine 324 Urine Random Total Protein 60 Urine Protein/Creatinine Ratio 0.19 Blood Urea Nitrogen 9 Creatinine 0.58 Random Glucose 89 Total Protein 7.4 Albumin 2.4 Calcium Level 8.4 Uric Acid 3.2 Alkaline Phosphatase 252 Aspartate Amino Transf (AST/SGOT) 11 Alanine Aminotransferase (ALT/SGPT) 10 Total Bilirubin 0.2 Sodium Level 136 Potassium Level 3.9 Chloride Level 105 Carbon Dioxide Level 20.5 Anion Gap 11 Estimat Glomerular Filtration Rate 153 MDM Medical Record Reviewed: Yes Plan preeclampsia and pt. current condition d/w. pt. repeated bp in 130/70. labs wnl. pt. to have 24 hour urine for protein. pt. to be d/c to home. pt. given precautions for return. all ? answered. f/u as sched. Diagnosis Diagnosis: Primary Impression: Hypertension affecting Additional Impressions: 34 weeks gestation of History of pre-eclampsia in prior , currently in third trimester Disposition: 01 DISCHARGE HOME Condition: Stable Patient Instructions: General Instructions, Gestational Diabetes (ED), 24 Hour Urine Collection (GEN), Movement (ED) Departure Forms: Tests/Procedures Baljeet Wells Jr., MD Apr 12, 2017 16:28
== END 2017-04-12 16:42 | disposition home or self-care (01) ==
LOC: HOBED 12:01
DX: O16.3 Unspecified maternal hypertension, third trimester (principal); Z3A.34 34 weeks gestation of pregnancy
CPT/HCPCS: 36415; 59025; 80053; 81001; 82570; 84156; 84550; 85027

== ENCOUNTER 2017-04-13 12:48 | Emergency (ER) | payer OTHER, MEDICAID ==
[~2017-04-13] VITALS: Ht 165.1 cm; Wt 111.6 kg
--- NOTE | 2017-04-13 13:48 | PD ---
HPI Chief Complaint Leaking fluid Date Seen: Apr 13, 2017 Time Seen: 13:00 Travel History International Travel<30 Days: No Contact w/Intl Traveler<30Days: No Known Affected Area: No History of Present Illness HPI Patient is 27-year-old black female PCS at 34-[address] Vang care and presents complaining of leakage of fluid per vagina. Here on OB ED her amnisure is negative, heart tracing is reactive and there are no contractions Weeks Gestation: 34 Para: 1 : 2 Last Menstrual Period: Apr 13, 2017 History Obstetric History Obstetric History 1 that was done at 29 weeks for severe preeclampsia Past Surgical History Narrative Surgical 1 Social History Alcohol Use: No Tobacco Use: No Substance Abuse: No Allergies-Medications (Allergen,Severity, Reaction): Coded Allergies: tree and shrub pollen (Verified Allergy, Severe, CONGESTION, ITCHING, ) cat dander (Verified Allergy, Mild, 01/02/17) dog dander (Verified Allergy, Mild, 01/02/17) shellfish derived (Verified Allergy, Unknown, 01/02/17) SWELLING IN THROAT Home Meds Active Scripts Acetaminophen-Codeine (Tylenol-Codeine #3) 300-30 mg Tab, 1-2 TAB PO Q6H Y for PAIN for 7 Days, #20 TAB 0 Refills Prov:Piyush Springer II, MD 01/23/17 Hydrocortisone Topical (Hydrocortisone Topical) 0.5% Cream, 1 APPLIC TOPICAL BID for Rash/Inflammation for 10 Days, #30 GM 0 Refills Apply to affected area(s) Prov:Inge Camara DO 11/09/16 Cromolyn Nasal Inh (Cromolyn Nasal Inh) 5.2 Mg/Act [place], 2 SPRAY EACH NARE TID for Asthma Management for 10 Days, #1 INHALER 0 Refills 1 spray per nostril Prov:Inge Camara DO 11/09/16 W/O Vit A W/ Fe Fumar (Citranatal [place]) 27-1-260 Mg Cap, 1 CAP PO DAILY for Nutritional Supplement, #30 CAP 0 Refills Prov:Aurea Bose CNM CAD PROGRAMMER 10/04/16 Review of Systems General / Constitutional: No: Fever, Weight Gain, Chills, Other Eyes: No: Diploplia, Blurred Vision, Visual changes, Pain, Photophobia HENT: No: Headaches, Vertigo, Lightheadedness Cardiovascular: No: Irregular Rhythm, Chest Pain or Discomfort, Palpitations, Tachycardia, Syncope, Varicosities, Edema, Cyanosis Respiratory: No: Cough, Short of Breath, Other Gastrointestinal: No: Nausea, Vomiting, Diarrhea Genitourinary: No: Decreased Urinary Output, Oliguria Musculoskeletal: No: Limited ROM, Weakness, Cramping, Edema, Pain Skin: No Rash, No Itching, No Dryness, No Lumps, No Change in Pigmentation, No Change in Nails, No Alopecia, No Lesions Neurologic: No: Weakness, Dizziness, Syncope, Focal Abnormalities, Coordination Problem, Headache, Slurred Speech, Seizures Psychiatric: No: Depression, Suicidal Ideations, Homicidal Ideation Endocrine: No: Heat Intolerance, Cold Intolerance, Polydipsia, Polyuria, Other Physical Exam Narrative GENERAL: Well-nourished, well-developed patient. SKIN: Warm and dry. HEAD: Normocephalic and atraumatic. EYES: No scleral icterus. No injection or drainage. ENT: No nasal drainage noted. Mucous membranes pink. Airway patent. NECK: Supple, trachea midline. No JVD. CARDIOVASCULAR: Regular rate and rhythm without murmurs, gallops, or rubs. RESPIRATORY: Breath sounds equal bilaterally. No accessory muscle use. BREASTS: Bilateral exam showed no masses , no retractions, no nipple discharge. ABDOMEN/GI: Abdomen soft, non-tender, bowel sounds present, no rebound, no guarding Gravid to [-34] weeks size Fundal Height: [34-] GENITOURINARY: External Genitalia: intact and normal in appearance BUS glands: [-] Cervix: [-0] Dilatation: [0-] Effacement: [-thick] Station: [-3] Membranes: [intact amnisure neg] Uterine Contractions: [no reg CTX-] FHT's: Category: [1-] Baseline: [-133] Reactive: [-R] Variability: [mod-] Decels: [none-] EXTREMITIES: No cyanosis or edema. BACK: Nontender without obvious deformity. No CVA tenderness. NEUROLOGICAL: Awake and alert. Motor and sensory grossly within normal limits. Five out of 5 muscle strength in all muscle groups. Normal speech. Data Data Labs amnisure is negative MDM Interpretation(s) Patient is 27-year-old black female previous 134-35 weeks who presents complaining of possible leaking fluid. I am sure is negative. heart rate tracing is reactive. She is not in labor. She has had a previous section and will see Dr. Vang concerning possible versus repeat C- section in the near future Plan Plan to discharge home to observation she will return for any increase in vaginal leakage, bleeding, or abdominal pain. Otherwise she will see her OB provider in the usual fashion Diagnosis Diagnosis: Primary Impression: No leakage of amniotic fluid into vagina Additional Impressions: Previous section 34 weeks gestation of Disposition: DISCHARGE HOME Condition: Stable Piyush Springer II, MD Apr 13, 2017 13:48
== END 2017-04-13 14:08 | disposition home or self-care (01) ==
LOC: HOBED 12:48
DX: O26.93 Pregnancy related conditions, unspecified, third trimester (principal); O34.219 Maternal care for unspecified type scar from previous cesarean delivery; Z3A.34 34 weeks gestation of pregnancy; Z79.899 Other long term (current) drug therapy
CPT/HCPCS: 84112; 99284

== ENCOUNTER 2017-04-19 16:24 | Emergency (ER) | payer OTHER, MEDICAID ==
[2017-04-19 17:05] VITALS: BP 124/80; PULSE 83
[2017-04-19 17:08] VITALS: RESP 15
--- NOTE | 2017-04-19 17:28 | PD ---
History of Present Illness History of Present Illness NST report Indications: IUP at 35 weeks, history of preeclampsia, decreased movement heart tones in the 120s with moderate long-term variability, good accelerations noted, no decelerations noted. This is a category 1 heart rate tracing and a reactive NST Follow-up: Follow-up as clinically indicated Final diagnosis: IUP at 35 weeks, history of preeclampsia, decreased movement which has resolved and the patient now feels normal movement, reassuring testing with BPP 09/14 and a reactive NST for a total score of 10/10 Coretta Dennis MD Apr 19, 2017 17:28
--- NOTE | 2017-04-19 17:36 | PD ---
HPI Chief Complaint Decreased movement Travel History International Travel<30 Days: No Contact w/Intl Traveler<30Days: No Known Affected Area: No History of Present Illness HPI 27-year-old , IUP at 35.4 care complicated by history of 29 week preeclamptic delivery, history of prior delivery, depression, anemia The patient was sent over from Dr. Vang's office for decreased movement. She reports that she had been feeling movement but was decreased from previous. She now reports normal movement since arriving. She denies any leaking of fluid or vaginal bleeding. She denies any painful contractions or cramping. She denies any symptoms of preeclampsia at this time. Weeks Gestation: 35 Para: 1 : 2 History Past Medical History Narrative Medical Depression, anemia, preeclampsia Obstetric History Obstetric History 101 delivery at 29 weeks for preeclampsia delivery 1 Past Surgical History Narrative Surgical section, wisdom teeth extraction, IUD removal Family History Family History: Negative Social History Alcohol Use: No Tobacco Use: No Substance Abuse: No Allergies-Medications (Allergen,Severity, Reaction): Coded Allergies: tree and shrub pollen (Verified Allergy, Severe, CONGESTION, ITCHING, ) cat dander (Verified Allergy, Mild, 01/02/17) dog dander (Verified Allergy, Mild, 01/02/17) shellfish derived (Verified Allergy, Unknown, 01/02/17) SWELLING IN THROAT Home Meds Active Scripts Acetaminophen-Codeine (Tylenol-Codeine #3) 300-30 mg Tab, 1-2 TAB PO Q6H Y for PAIN for 7 Days, #20 TAB 0 Refills Prov:Piyush Springer II, MD 01/23/17 Hydrocortisone Topical (Hydrocortisone Topical) 0.5% Cream, 1 APPLIC TOPICAL BID for Rash/Inflammation for 10 Days, #30 GM 0 Refills Apply to affected area(s) Prov:Inge Camara DO 11/09/16 Cromolyn Nasal Inh (Cromolyn Nasal Inh) 5.2 Mg/Act [place], 2 SPRAY EACH NARE TID for Asthma Management for 10 Days, #1 INHALER 0 Refills 1 spray per nostril Prov:Inge Camara DO 11/09/16 W/O Vit A W/ Fe Fumar (Citranatal [place]) 27-1-260 Mg Cap, 1 CAP PO DAILY for Nutritional Supplement, #30 CAP 0 Refills Prov:Aurea Bose CNDiana CORE WINDING OPERATOR 10/04/16 Review of Systems Except as stated in HPI: all other systems reviewed are Neg Respiratory: Short of Breath Physical Exam Vital Signs Date Time Temp Pulse Resp B/P (MAP) Pulse Ox O2 Delivery O2 Flow Rate FiO2 04/19/17 17:08 15 04/19/17 17:05 83 124/80 (95) Narrative GENERAL: Well-nourished, well-developed patient. SKIN: Warm and dry. HEAD: Normocephalic and atraumatic. EYES: No scleral icterus. No injection or drainage. ENT: No nasal drainage noted. Mucous membranes pink. Airway patent. NECK: Supple, trachea midline. No JVD. CARDIOVASCULAR: Regular rate and rhythm without murmurs, gallops, or rubs. RESPIRATORY: Breath sounds equal bilaterally. No accessory muscle use. BREASTS: Deferred ABDOMEN/GI: Abdomen soft, non-tender, bowel sounds present, no rebound, no guarding Gravid GENITOURINARY: Deferred FHT's: heart tones in the 120s with moderate long-term variability, good accelerations, no decelerations noted. Th is a category 1 heart rate tracing and reactive NST. EXTREMITIES: No cyanosis or edema. BACK: Nontender without obvious deformity. NEUROLOGICAL: Awake and alert. Motor and sensory grossly within normal limits. Normal speech. Musculoskeletal: Grossly normal range of motion, gait, muscle strength 's psychiatric: Grossly normal memory and affect Data Data Orders Orders Vital Signs (Adult) .ON ADMISSION (04/19/17 16:34) ^ Labor Status (04/19/17 16:34) ^ Non Stress Test (04/19/17 16:34) Us Ob Bpp Wo Nst (04/19/17 16:34) MDM Plan Assessment/plan: 1. IUP at 35.4 2. Decreased movement: The patient now reports normal movement after arriving. She had a biophysical profile of 10 out of 10 with reactive NST. kick counts daily 3. No evidence of labor, strict labor precautions 4. History of preeclampsia delivery at 29 weeks': No evidence of preeclampsia at this time 5. well-being: Reassuring testing with reactive NST and biophysical profile 8/8 for a total of 11/16. As noted above the patient reports normal movement since arriving. kick counts daily. 6. Follow-up with Dr. Vang in 2-3 days or sooner if needed 7. Depression 8. Shortness of breath: The patient has reported to short episodes of shortness of breath, she was instructed to have this evaluated in the ED. 9. Anemia Diagnosis Diagnosis: Primary Impression: 35 weeks gestation of Additional Impression: Decreased movement affecting management of , antepartum Disposition: 01 DISCHARGE HOME Condition: Coretta Marie MD Apr 19, 2017 17:36
== END 2017-04-19 18:43 | disposition home or self-care (01) ==
LOC: HOBED 16:24
DX: O36.8130 Decreased fetal movements, third trimester, not applicable or unspecified (principal); Z3A.35 35 weeks gestation of pregnancy
CPT/HCPCS: 59025; 76819

== ENCOUNTER 2017-04-26 12:19 | Observation (INO) | payer OTHER, MEDICAID ==
[~2017-04-26] VITALS: Ht 162.6 cm; Wt 115.0 kg
--- NOTE | 2017-04-26 13:32 | PD ---
HPI Chief Complaint Swelling in hands and feet Date Seen: Apr 26, 2017 Travel History International Travel<30 Days: No Contact w/Intl Traveler<30Days: No Known Affected Area: No History of Present Illness HPI Patient is a 27-year-old at 36/4 weeks gestation that presents to the [facility] ED from Dr. Vang's office to be evaluated for preeclampsia. Patient states that she has been having swelling in her hands and face and has been seeing spots in her vision. She also complains of midsternal chest pain that has been on and off for the past 2 weeks. She states that the chest pain takes her breath away and kept her awake last night. Last week she had shortness of breath. She does not have any headache right now but she had a headache last night. She has also had a runny nose and has been coughing but her daughter was recently diagnosed with the flu so she thinks that she may have early symptoms of the flu. Notably, the patient had a at 29 weeks for preeclampsia. She denies contractions, leaking, or spotting. History Past Medical History Narrative Medical Depression, anemia, preeclampsia Obstetric History Obstetric History 101 delivery at 29 weeks for preeclampsia delivery 1 Past Surgical History Narrative Surgical section, wisdom teeth extraction, IUD removal Family History Family History: Negative Social History Alcohol Use: No Tobacco Use: No Substance Abuse: No Allergies-Medications (Allergen,Severity, Reaction): Coded Allergies: tree and shrub pollen (Verified Allergy, Severe, CONGESTION, ITCHING, ) cat dander (Verified Allergy, Mild, 01/02/17) dog dander (Verified Allergy, Mild, 01/02/17) shellfish derived (Verified Allergy, Unknown, 01/02/17) SWELLING IN THROAT Home Meds Active Scripts Cromolyn Nasal Inh (Cromolyn Nasal Inh) 5.2 Mg/Act [place], 2 SPRAY EACH NARE TID for Asthma Management for 10 Days, #1 INHALER 0 Refills 1 spray per nostril Prov:Inge Camara DO 11/09/16 W/O Vit A W/ Fe Fumar (Citranatal [place]) 27-1-260 Mg Cap, 1 CAP PO DAILY for Nutritional Supplement, #30 CAP 0 Refills Prov:Aurea Bose CNM GULLET SLITTER 10/04/16 Discontinued Scripts Acetaminophen-Codeine (Tylenol-Codeine #3) 300-30 mg Tab, 1-2 TAB PO Q6H Y for PAIN for 7 Days, #20 TAB 0 Refills Prov:Piyush Springer II, MD 01/23/17 Hydrocortisone Topical (Hydrocortisone Topical) 0.5% Cream, 1 APPLIC TOPICAL BID for Rash/Inflammation for 10 Days, #30 GM 0 Refills Apply to affected area(s) Prov:Inge Camara DO 11/09/16 Review of Systems Except as stated in HPI: all other systems reviewed are Neg Physical Exam Narrative GENERAL: Well-nourished, well-developed patient. SKIN: Warm and dry. HEAD: Normocephalic and atraumatic. EYES: No scleral icterus. No injection or drainage. ENT: No nasal drainage noted. Mucous membranes pink. Airway patent. NECK: Supple, trachea midline. No JVD. CARDIOVASCULAR: Regular rate and rhythm without murmurs, gallops, or rubs. RESPIRATORY: Breath sounds equal bilaterally. No accessory muscle use. ABDOMEN/GI: Abdomen soft, non-tender, bowel sounds present, no rebound, no guarding Gravid to 36 weeks size GENITOURINARY: External Genitalia: intact and normal in appearance Cervix: [-] Dilatation: [-] Effacement: [-] Station: [-] Presentation: [-] Membranes: intact Uterine Contractions: [-] FHT's: Category: I Baseline: 135 Reactive: Yes, multiple accels Variability: Moderate Decels: None EXTREMITIES: No cyanosis or edema. BACK: Nontender without obvious deformity. No CVA tenderness. NEUROLOGICAL: Awake and alert. Motor and sensory grossly within normal limits. Five out of 5 muscle strength in all muscle groups. Normal speech. Data Data Vital Signs Reviewed: Yes Orders Orders Urinalysis - C+S If Indicated (04/26/17 13:31) [facility] Medical Record Reviewed: Yes Interpretation(s) 27 year old at 36/4 weeks gestation, presents to be evaluated for preeclampsia Plan 1. IUP -Category 1 tracing, heart tones reassuring -Continue routine care 2. Preeclampsia workup -CBC: plt 165, H/H: 10.1/30.6 -CMP: AST/ALT wnl at 14/12 -Uric acid: wnl at 3.4 -Urine protein creatinine ratio: elevated at 0.30, total protein 46, random creatinine 155 Admit on observation with continuous monitoring. Repeat labs in the am. Regular diet Discussed with Nathalie Avery MD Apr 26, 2017 13:32
[2017-04-26 14:17] LABS: BACTERIA, URINE FEW /hpf; BILIRUBIN, URINE NEG (NEG); BLOOD, URINE NEG (NEG); GLUCOSE,URINE NEG (NEG); KETONE, URINE NEG (NEG); MUCUS URINE FEW /lpf (OCC); NITRITE,URINE NEG (NEG); SQUAMOUS EPITHELIAL CELL URINE 14 /hpf (0-5); URINE COLOR YELLOW (YELLW/STRAW); URINE LEUKOCYTE ESTERASE NEG (NEG)
[2017-04-26 15:42] LABS: HEMATOCRIT 30.6 % (35.0-46.0); HEMOGLOBIN 10.1 GM/DL (11.6-15.3); MEAN CELL VOLUME 72.2 FL (80.0-100.0); MEAN CORPUSCULAR HEMOGLOBIN 23.8 PG (27.0-34.0); MEAN PLATELET VOLUME 10.8 FL (7.0-11.0); PLATELET COUNT 165 TH/MM3 (150-450); RED BLOOD COUNT 4.24 MIL/MM3 (4.00-5.30); RED CELL DISTRIBUTION WIDTH 16.6 % (11.6-17.2); WHITE BLOOD COUNT 7.4 TH/MM3 (4.0-11.0)
[2017-04-26 16:10] LABS: ALBUMIN 2.4 GM/DL (3.4-5.0); ALT (GPT) 12 U/L (10-53); AST (GOT) 14 U/L (15-37); BICARBONATE 22.6 MEQ/L (21.0-32.0); BLOOD UREA NITROGEN 11 MG/DL (7-18); CALCIUM 9.1 MG/DL (8.5-10.1); CHLORIDE 105 MEQ/L (98-107); CREATININE 0.62 MG/DL (0.50-1.00); GLOMERULAR FILTRATION RATE 142 ML/MIN (>89); GLUCOSE,RANDOM 69 MG/DL (74-106); SODIUM (NA) 138 MEQ/L (136-145)
[2017-04-26 16:13] LABS: ALKALINE PHOSPHATASE 250 U/L (45-117); TOTAL BILIRUBIN ADULT 0.2 MG/DL (0.2-1.0); TOTAL PROTEIN 7.4 GM/DL (6.4-8.2)
[2017-04-26] MEDS ORDERED: SODIUM CHLORIDE 0.9% FLUSH 10 ML FLUSH IV FLUSH PRN (16:15)
[2017-04-26] MEDS ORDERED: ONDANSETRON HCL 4 MG/2 ML VIAL IV PUSH PRN (16:15)
[2017-04-26] MEDS ORDERED: ACETAMINOPHEN 325 MG TAB PO PRN (16:15)
[2017-04-26] MEDS ORDERED: ALUMINUM/MAGNESIUM/SIMETH 30 ML CUP PO PRN (16:15)
--- NOTE | 2017-04-26 17:23 | HHI.HP ---
History & Physical H&P HPI Chief Complaint Swelling in hands and feet Date Seen: Apr 26, 2017 Travel History International Travel<30 Days: No Contact w/Intl Traveler<30Days: No Known Affected Area: No History of Present Illness HPI Patient is a 27-year-old at 36/4 weeks gestation that presents to the [place] [facility] ED from Dr. Vang's office to be evaluated for preeclampsia. Patient states that she has been having swelling in her hands and face and has been seeing spots in her vision. She also complains of midsternal chest pain that has been on and off for the past 2 weeks. She states that the chest pain takes her breath away and kept her awake last night. Last week she had shortness of breath. She does not have any headache right now but she had a headache last night. She has also had a runny nose and has been coughing but her daughter was recently diagnosed with the flu so she thinks that she may have early symptoms of the flu. Notably, the patient had a at 29 weeks for preeclampsia. She denies contractions, leaking, or spotting. History (Limited) History Past Medical History Narrative Medical Depression, anemia, preeclampsia Obstetric History Obstetric History 101 delivery at 29 weeks for preeclampsia delivery 1 Past Surgical History Narrative Surgical section, wisdom teeth extraction, IUD removal Family History Family History: Negative Social History Alcohol Use: No Tobacco Use: No Substance Abuse: No Allergies-Medications Allergies-Medications (Allergen,Severity, Reaction): Coded Allergies: tree and shrub pollen (Verified Allergy, Severe, CONGESTION, ITCHING, ) cat dander (Verified Allergy, Mild, 01/02/17) dog dander (Verified Allergy, Mild, 01/02/17) shellfish derived (Verified Allergy, Unknown, 01/02/17) SWELLING IN THROAT Home Meds Active Scripts Cromolyn Nasal Inh (Cromolyn Nasal Inh) 5.2 Mg/Act [place], 2 SPRAY EACH NARE TID for Asthma Management for 10 Days, #1 INHALER 0 Refills 1 spray per nostril Prov:Inge Camara DO 11/09/16 W/O Vit A W/ Fe Fumar (Citranatal [place]) 27-1-260 Mg Cap, 1 CAP PO DAILY for Nutritional Supplement, #30 CAP 0 Refills Prov:Aurea Bose CNM CANVAS REPAIRER 10/04/16 Discontinued Scripts Acetaminophen-Codeine (Tylenol-Codeine #3) 300-30 mg Tab, 1-2 TAB PO Q6H Y for PAIN for 7 Days, #20 TAB 0 Refills Prov:Piyush Springer II, MD 01/23/17 Hydrocortisone Topical (Hydrocortisone Topical) 0.5% Cream, 1 APPLIC TOPICAL BID for Rash/Inflammation for 10 Days, #30 GM 0 Refills Apply to affected area(s) Prov:Inge Camara DO 11/09/16 ROS Review of Systems Except as stated in HPI: all other systems reviewed are Neg Physical Exam Physical Exam Narrative GENERAL: Well-nourished, well-developed patient. SKIN: Warm and dry. HEAD: Normocephalic and atraumatic. EYES: No scleral icterus. No injection or drainage. ENT: No nasal drainage noted. Mucous membranes pink. Airway patent. NECK: Supple, trachea midline. No JVD. CARDIOVASCULAR: Regular rate and rhythm without murmurs, gallops, or rubs. RESPIRATORY: Breath sounds equal bilaterally. No accessory muscle use. ABDOMEN/GI: Abdomen soft, non-tender, bowel sounds present, no rebound, no guarding Gravid to 36 weeks size GENITOURINARY: External Genitalia: intact and normal in appearance Cervix: [-] Dilatation: [-] Effacement: [-] Station: [-] Presentation: [-] Membranes: intact Uterine Contractions: [-] FHT's: Category: I Baseline: 135 Reactive: Yes, multiple accels Variability: Moderate Decels: None EXTREMITIES: No cyanosis or edema. BACK: Nontender without obvious deformity. No CVA tenderness. NEUROLOGICAL: Awake and alert. Motor and sensory grossly within normal limits. Five out of 5 muscle strength in all muscle groups. Normal speech. Data Data Data Vital Signs Reviewed: Yes Orders Orders Urinalysis - C+S If Indicated (04/26/17 13:31) [facility] Medical Record Reviewed: Yes Interpretation(s) 27 year old at 36/4 weeks gestation, presents to be evaluated for preeclampsia Plan 1. IUP -Category 1 tracing, heart tones reassuring -Continue routine care 2. Preeclampsia workup -CBC: plt 165, H/H: 10.1/30.6 -CMP: AST/ALT wnl at 14/12 -Uric acid: wnl at 3.4 -Urine protein creatinine ratio: elevated at 0.30, total protein 46, random creatinine 155 Admit on observation with continuous monitoring. Repeat labs in the am. Regular diet Discussed with Nathalie Avery MD Apr 26, 2017 17:23
[2017-04-26] MEDS ORDERED: SODIUM CHLORIDE 0.9% FLUSH 10 ML FLUSH IV FLUSH ONE (17:45)
[2017-04-26] MEDS ORDERED: ZOLPIDEM TARTRATE 5 MG TAB PO PRN (18:00)
[2017-04-26 18:31] VITALS: BP 135/85; PULSE 89
[2017-04-26 18:45] VITALS: RESP 17
[2017-04-26 20:00] VITALS: RESP 18; TEMP 97.6
[2017-04-26 20:07] VITALS: BP 142/79; PULSE 108
[2017-04-26] MEDS: FERROUS SULFATE 325 MG (65 MG ELEMENTAL IRON) TAB PO SCH (21:00)
[2017-04-26] MEDS: SODIUM CHLORIDE 0.9% FLUSH 10 ML FLUSH IV FLUSH SCH (21:00)
[2017-04-27 02:00] VITALS: BP 130/77; PULSE 79
[2017-04-27 06:02] LABS: HEMATOCRIT 31.3 % (35.0-46.0); HEMOGLOBIN 10.1 GM/DL (11.6-15.3); MEAN CELL VOLUME 73.3 FL (80.0-100.0); MEAN CORPUSCULAR HEMOGLOBIN 23.8 PG (27.0-34.0); MEAN CORPUSCULAR HGB CONC 32.4 % (32.0-36.0); MEAN PLATELET VOLUME 10.1 FL (7.0-11.0); PLATELET COUNT 163 TH/MM3 (150-450); RED BLOOD COUNT 4.27 MIL/MM3 (4.00-5.30); RED CELL DISTRIBUTION WIDTH 17.2 % (11.6-17.2); WHITE BLOOD COUNT 8.3 TH/MM3 (4.0-11.0)
[2017-04-27 06:07] LABS: ALBUMIN 2.3 GM/DL (3.4-5.0); ALT (GPT) 12 U/L (10-53); AST (GOT) 14 U/L (15-37); BICARBONATE 18.6 MEQ/L (21.0-32.0); BLOOD UREA NITROGEN 11 MG/DL (7-18); CALCIUM 8.4 MG/DL (8.5-10.1); CHLORIDE 106 MEQ/L (98-107); CREATININE 0.58 MG/DL (0.50-1.00); GLOMERULAR FILTRATION RATE 153 ML/MIN (>89); GLUCOSE,RANDOM 82 MG/DL (74-106); SODIUM (NA) 136 MEQ/L (136-145)
[2017-04-27 06:09] LABS: ALKALINE PHOSPHATASE 233 U/L (45-117); TOTAL BILIRUBIN ADULT 0.2 MG/DL (0.2-1.0); TOTAL PROTEIN 7.2 GM/DL (6.4-8.2)
[2017-04-27 06:10] VITALS: BP 133/81; PULSE 85
[2017-04-27 06:23] VITALS: RESP 18; TEMP 97.9
--- NOTE | 2017-04-27 08:31 | HHI.PR ---
Subjective Remarks Doing well this morning rested well overnight. No headaches scotoma or right upper quadrant pain Baby is moving well no rupture of membranes or bleeding or regular uterine contractions Objective Vital Signs Date Time Temp Pulse Resp B/P (MAP) Pulse Ox O2 Delivery O2 Flow Rate FiO2 04/27/17 06:23 97.9 18 04/27/17 06:10 85 133/81 (98) 04/27/17 02:00 79 04/27/17 02:00 130/77 (94) 04/26/17 20:07 108 142/79 (100) 04/26/17 20:00 97.6 04/26/17 20:00 18 04/26/17 18:45 17 04/26/17 18:31 89 135/85 (102) Result Diagram: 04/27/17 0535 04/27/17 0535 Objective Remarks Well-developed well-nourished female without significant swelling Chest is clear Heart has a regular rate and rhythm Abdomen is gravid the fundus is nontender Extremities deep tendon reflexes are +2, her calves are nontender Assessment and Plan Assessment and Plan Intrauterine at 36 weeks and 5 days Preeclampsia no evidence of severe disease at this time her tracing is category 1 and her labs look normal except for the protein to creatinine ratio Previous we plan to repeat her in 2 days Anemia she is to continue her iron We will schedule her for on Tuesday at 1 PM she knows to come back to the hospital for is any change in her status any increased scotoma terrible headaches right upper quadrant pain or swelling Alesha Vang MD Apr 27, 2017 08:31
[2017-04-27] MEDS ORDERED: MULTIVIT/MIN/PREN/FOL AC/IRON PRENATAL TAB PO SCH (09:00)
[2017-04-27] MEDS: SODIUM CHLORIDE 0.9% FLUSH 10 ML FLUSH IV FLUSH SCH (09:00)
[2017-04-27] MEDS: FERROUS SULFATE 325 MG (65 MG ELEMENTAL IRON) TAB PO SCH (09:24)
[2017-04-28] MEDS ORDERED: OSEL75 PO (14:41)
== END 2017-04-27 09:55 | disposition home or self-care (01) ==
LOC: HOBED 12:19 → H2EA 15:59
PROVIDERS: ADMIT Obstetrics & Gynecology; ATTEND Obstetrics & Gynecology
DX: Z03.79 Encounter for other suspected maternal and fetal conditions ruled out (principal); R60.0 Localized edema; M79.89 Other specified soft tissue disorders; Z3A.36 36 weeks gestation of pregnancy; R05 Cough; R07.2 Precordial pain; F32.9 Major depressive disorder, single episode, unspecified; D64.9 Anemia, unspecified
CPT/HCPCS: 36415; 59025; 80053; 81001; 82570; 84156; 84550; 85027; 99285; G0378

== ENCOUNTER 2017-04-28 13:28 | Emergency (ER) | payer OTHER, MEDICAID ==
[~2017-04-28] VITALS: Ht 165.1 cm; Wt 115.2 kg
[2017-04-28] MEDS ORDERED: OSEL75 PO (14:41)
--- NOTE | 2017-04-28 14:41 | PD ---
HPI Chief Complaint Headache Date Seen: Apr 28, 2017 Time Seen: 14:35 Travel History International Travel<30 Days: No Contact w/Intl Traveler<30Days: No Known Affected Area: No History of Present Illness HPI 27-year-old who is 36 weeks 6 days comes in complaining of left-sided headache. Patient was admitted day before yesterday for a workup and was diagnosed with mild preeclampsia and has a section on for tomorrow when she will be 37 weeks. Patient's blood pressures were mildly elevated while she was inpatient, all her labs were normal, protein creatinine ratio is 0.27. Patient states that her headache has been associated with a cough that she has had for the past 36 hours as well as severe nasal congestion that has been resistant to her normal allergy medications. Her household is her mother who is positive for influenza and another child who also. Patient although has felt tired and achy denies any fevers at home. Weeks Gestation: 36 Para: 1 : 2 History Past Medical History Medical History: Denies Significant Hx Obstetric History Obstetric History 29 weeks gestation section for severe preeclampsia Past Surgical History Narrative Surgical section Family History Family History: Negative Social History Alcohol Use: No Tobacco Use: No Substance Abuse: No Allergies-Medications (Allergen,Severity, Reaction): Coded Allergies: tree and shrub pollen (Verified Allergy, Severe, CONGESTION, ITCHING, 04/26) cat dander (Verified Allergy, Mild, 04/26/17) dog dander (Verified Allergy, Mild, 04/26/17) shellfish derived (Verified Allergy, Unknown, 04/26/17) SWELLING IN THROAT Home Meds Active Scripts Cromolyn Nasal Inh (Cromolyn Nasal Inh) 5.2 Mg/Act [place], 2 SPRAY EACH NARE TID for Asthma Management for 10 Days, #1 INHALER 0 Refills 1 spray per nostril Prov:Inge Camara DO 11/09/16 W/O Vit A W/ Fe Fumar (Citranatal [place]) 27-1-260 Mg Cap, 1 CAP PO DAILY for Nutritional Supplement, #30 CAP 0 Refills Prov:Aurea Bose CNM FIELD ARTILLERY OFFICER 10/04/16 Discontinued Scripts Acetaminophen-Codeine (Tylenol-Codeine #3) 300-30 mg Tab, 1-2 TAB PO Q6H Y for PAIN for 7 Days, #20 TAB 0 Refills Prov:Piyush Springer II, MD 01/23/17 Hydrocortisone Topical (Hydrocortisone Topical) 0.5% Cream, 1 APPLIC TOPICAL BID for Rash/Inflammation for 10 Days, #30 GM 0 Refills Apply to affected area(s) Prov:Inge Camara DO 11/09/16 Review of Systems Except as stated in HPI: all other systems reviewed are Neg General / Constitutional: Chills Eyes: Blurred Vision HENT: Headaches Respiratory: Cough Physical Exam Narrative GENERAL: Well-nourished, well-developed patient. SKIN: Warm and dry. HEAD: Normocephalic and atraumatic. EYES: No scleral icterus. No injection or drainage. Allergic facies ENT: No nasal drainage noted. Mucous membranes pink. Airway patent. NECK: Supple, trachea midline. No JVD. CARDIOVASCULAR: Regular rate and rhythm without murmurs, gallops, or rubs. RESPIRATORY: Breath sounds equal bilaterally. No accessory muscle use. ABDOMEN/GI: Abdomen soft, non-tender, bowel sounds present, no rebound, no guarding Gravid to [-] weeks size 36 Fundal Height: [-] GENITOURINARY: Deferred External Genitalia: intact and normal in appearance BUS glands: [-] Cervix: [-] Dilatation: [-] Effacement: [-] Station: [-] Presentation: [-] Membranes: [intact or ruptured] Uterine Contractions: [-] FHT's: Category: [-] 1 Baseline: [-] 140 Reactive: [-] Moderate Variability: [-] Moderate Decels: [-] EXTREMITIES: No cyanosis or edema. BACK: Nontender without obvious deformity. No CVA tenderness. NEUROLOGICAL: Awake and alert. Motor and sensory grossly within normal limits. Five out of 5 muscle strength in all muscle groups. Normal speech. Data Data Vital Signs Reviewed: Yes [facility] Medical Record Reviewed: Yes Plan 27-year-old at 36 weeks 6 days with nasal congestion, headache, cough and direct exposure to influenza in her immediate family. Blood pressures are unchanged today from her day here for hospital 2 days ago and are only mildly elevated Tamiflu was prescribed given her history, timing and her exposure Diagnosis Diagnosis: Primary Impression: Upper respiratory infection Additional Impressions: 36 weeks gestation of Mild pre-eclampsia in third trimester Previous section complicating , antepartum condition or complication Disposition: 01 DISCHARGE HOME Scripts Oseltamivir (Tamiflu) 75 Mg Cap 75 MG PO BID for Mgmt Viral Infection for 5 Days, #10 CAP 0 Refills Prov: Darshana Blood MD 04/28/17 Darshana Blood MD Apr 28, 2017 14:41
== END 2017-04-28 14:49 | disposition home or self-care (01) ==
LOC: HOBED 13:28
DX: O99.513 Diseases of the respiratory system complicating pregnancy, third trimester (principal); J06.9 Acute upper respiratory infection, unspecified; O14.03 Mild to moderate pre-eclampsia, third trimester; O34.219 Maternal care for unspecified type scar from previous cesarean delivery; Z3A.36 36 weeks gestation of pregnancy; Z79.899 Other long term (current) drug therapy
CPT/HCPCS: 59025

== ENCOUNTER 2017-04-29 10:01 | Inpatient (IN) | payer OTHER, MEDICAID ==
[2017-04-29] VITALS (19 sets, daily range): BP systolic 115–139; BP diastolic 72–101; PULSE 84–127; RESP 14–20; TEMP 97.4–98.8; O2SAT 96–100
[~2017-04-29] VITALS: Ht 162.6 cm; Wt 115.0 kg
[~2017-04-29 10:01] MED LIST changes: -HYDRO.5%T TOPICAL; +OSEL75 PO; -TYLETAB34 PO
[2017-04-29 11:39] LABS: AUTOMATED NEUTROPHIL # 5.4 TH/MM3 (1.8-7.7); BASOPHIL % 0.2 % (0.0-2.0); EOSINOPHIL % 0.3 % (0.0-4.0); HEMATOCRIT 32.4 % (35.0-46.0); HEMOGLOBIN 10.6 GM/DL (11.6-15.3); LYMPH % 13.3 % (9.0-44.0); LYMPHOCYTE # 0.9 TH/MM3 (1.0-4.8); MEAN CORPUSCULAR HEMOGLOBIN 23.5 PG (27.0-34.0); MEAN CORPUSCULAR HGB CONC 32.7 % (32.0-36.0); MEAN PLATELET VOLUME 10.8 FL (7.0-11.0); MONO % 6.9 % (0.0-8.0); MONOCYTE # 0.5 TH/MM3 (0-0.9); NEUT % 79.3 % (16.0-70.0); PLATELET COUNT 154 TH/MM3 (150-450); RED CELL DISTRIBUTION WIDTH 17.1 % (11.6-17.2); WHITE BLOOD COUNT 6.8 TH/MM3 (4.0-11.0)
[2017-04-29 11:40] LABS: BACTERIA, URINE MOD /hpf; BILIRUBIN, URINE NEG (NEG); BLOOD, URINE SMALL (NEG); GLUCOSE,URINE NEG (NEG); KETONE, URINE NEG (NEG); NITRITE,URINE NEG (NEG); SQUAMOUS EPITHELIAL CELL URINE 22 /hpf (0-5); URINE COLOR YELLOW (YELLW/STRAW); URINE LEUKOCYTE ESTERASE NEG (NEG)
[2017-04-29] MEDS ORDERED: PHENYLEPHRINE HCL 10 MG/ML VIAL IV ONE (12:00)
[2017-04-29] MEDS ORDERED: SODIUM CHLORIDE 0.9% 20 ML VIAL IV ONE (12:00)
[2017-04-29] MEDS ORDERED: OXYTOCIN 10 UNIT/ML AMP IV ONE (12:00)
[2017-04-29] MEDS ORDERED: KETOROLAC TROMETHAMINE 30 MG/ML (IVP) VIAL IV PUSH ONE ×2 (12:00→21:15)
[2017-04-29] MEDS ORDERED: PHENYLEPH/NS 1000 MCG/10 ML SYR IV ONE (12:00)
[2017-04-29] MEDS ORDERED: ePHEDrine/NS 25 MG/5 ML SYRINGE IV ONE (12:00)
[2017-04-29] MEDS ORDERED: ONDANSETRON HCL 4 MG/2 ML VIAL IV PUSH ONE (12:00)
[2017-04-29] MEDS ORDERED: DEXAMETHASONE SOD PHOS 4 MG/ML VIAL IV ONE (12:00)
[2017-04-29] MEDS ORDERED: ONDANSETRON HCL 4 MG/2 ML VIAL IV ONE (12:00)
[2017-04-29] MEDS ORDERED: CITRIC ACID-SODIUM CITRATE LIQ 30 ML UDC ONE (12:56)
[2017-04-29] MEDS ORDERED: CITRIC ACID-SODIUM CITRATE LIQ 30 ML UDC PO SCH (13:15)
[2017-04-29] MEDS ORDERED: LACTATED RINGER'S 1000 ML IV SCH (13:15)
[2017-04-29] MEDS ORDERED: MORPHINE SULFATE PF 5 MG/10 ML VIAL ONE (14:36)
[2017-04-29] MEDS ORDERED: MIDAZOLAM HCL 2 MG/2 ML VIAL ONE (15:36)
[2017-04-29] MEDS ORDERED: SIMETHICONE 80 MG CHEWABLE TAB PO PRN (16:30)
[2017-04-29] MEDS ORDERED: SODIUM CHLORIDE 0.9% FLUSH 10 ML FLUSH IV FLUSH PRN (16:30)
[2017-04-29] MEDS ORDERED: DOCUSATE SODIUM 50 MG/SENNA 8.6 MG TAB PO PRN (16:30)
[2017-04-29] MEDS ORDERED: oxyCODONE/ACETAMINOPHEN 5 MG/325 MG TAB PO PRN ×2 (16:30)
[2017-04-29] MEDS ORDERED: ACETAMINOPHEN 325 MG TAB PO PRN (16:30)
[2017-04-29] MEDS ORDERED: OXYTOCIN 30 UNITS-500ML PREMIX 500 ML IV ONE ×2 (16:30)
--- NOTE | 2017-04-29 16:47 | HHI.DCPOC ---
Discharge Care Plan Diagnosis: (1) Pre-eclampsia affecting childbirth (2) delivery delivered (3) Intrauterine Report Symptoms to Your Doctor -Temperature above 100.5 degrees -Redness, of incision or excessive or foul smelling drainage -Unusual pain or calf pain -Increased vaginal bleeding -Painful or difficulty urinating -Feelings of extreme sadness or anxiety after 2 weeks Goals to Promote Your Health * To prevent worsening of your condition and complications * To maintain your health at the optimal level Directions to Meet Your Goals Take your medications as prescribed Follow your dietary instruction Follow activity as directed Ensure plenty of rest for recovery Drink fluids for hydration Keep your appointments as scheduled Take your immunizations and boosters as scheduled If your symptoms worsen call your PCP, if no PCP go to Urgent Care Center or Emergency Room Smoking is Dangerous to Your Health. Avoid second hand smoke Call the 24-hour crisis hotline for domestic abuse at Alesha Vang MD Apr 29, 2017 16:47
[2017-04-29] MEDS ORDERED: OXYTOCIN 30 UNITS-500ML PREMIX 500 ML ONE (17:25)
[2017-04-29] MEDS ORDERED: ONDANSETRON HCL 4 MG/2 ML VIAL ONE (17:38)
[2017-04-29] MEDS: ONDANSETRON HCL 4 MG/2 ML VIAL IV PUSH PRN (17:41)
[2017-04-29] MEDS ORDERED: ZOLPIDEM TARTRATE 5 MG TAB PO PRN (21:00)
[2017-04-29] MEDS ORDERED: SODIUM CHLORIDE 0.9% FLUSH 10 ML FLUSH IV FLUSH SCH (21:00)
[2017-04-29] MEDS ORDERED: ACETAMINOPHEN 1000 MG/100 ML 100 ML IV ONE (21:15)
[2017-04-29] MEDS ORDERED: LACTATED RINGER'S 1000 ML INJ 1,000 ML IV SCH (21:30)
[2017-04-29] MEDS: CROMOLYN SODIUM 5.2 MG/ACT 13 ML NASAL SPRAY EACH NARE SCH (21:41)
[2017-04-29] MEDS: OSELTAMIVIR PHOSPHATE 75 MG CAP PO SCH (21:41)
[2017-04-30] VITALS (21 sets, daily range): BP systolic 83–152; BP diastolic 51–82; PULSE 84–125; RESP 14–21; TEMP 83.6–98.4; O2SAT 98–100
[2017-04-30] MEDS: ONDANSETRON HCL 4 MG/2 ML VIAL IV PUSH PRN (00:11)
[2017-04-30] MEDS ORDERED: AMMONIA AROMATIC INHALANT 0.33 ML ONE (00:25)
[2017-04-30 01:34] LABS: HEMOGLOBIN 6.3 GM/DL (11.6-15.3)
[2017-04-30 01:43] LABS: BICARBONATE 23.4 MEQ/L (21.0-32.0); CALCIUM 7.5 MG/DL (8.5-10.1); CREATININE 0.94 MG/DL (0.50-1.00)
[2017-04-30] MEDS ORDERED: EPIDURAL-NALOXONE HCL 0.4 MG/ML AMP IV PUSH PRN (01:45)
[2017-04-30] MEDS ORDERED: EPIDURAL-DIPHENHYDRAMINE HCL 50 MG CAP PO PRN (01:45)
[2017-04-30] MEDS ORDERED: EPIDURAL-NO SYSTEMIC NARCOTICS PRN (01:45)
[2017-04-30] MEDS ORDERED: EPIDURAL-DO NOT ADMINISTER ANTICOAGULANTS PRN (01:45)
[2017-04-30] MEDS ORDERED: EPIDURAL-DIPHENHYDRAMINE HCL 50 MG/ML VIAL IV PUSH PRN (01:45)
[2017-04-30 01:48] LABS: TROPONIN I 0.05 NG/ML (0.02-0.05)
--- NOTE | 2017-04-30 02:29 | HHI.PR ---
Subjective Remarks OBHG S: 27 y/o P1102, POD #1 s/p repeat C/S performed yesterday afternoon for mild preeclampsia at 37.0. The patient was delivered at 4:30 pm and had an uneventful initial postoperative course in the recovery room and was transferred to the floor in stable condition. She was doing well overall, although had a low urine output of 150cc from approximately 7pm until about 1am. The patient had an acute episode of emesis at 12:30 am followed acutely by symptoms of diaphoresis, dizziness, and nausea. She reports continued nausea and pain that radiates up her right side to her right neck. She was noted to be hypotensive with BP as low as the 80s/50s (85/63, 83/69, 102/51, 106/60, 90/66, 93/62, 92/54, 89/64) . O: Upon arrival to the patient's room on behalf of Dr. Rios, the patient appeared pale and diaphoretic. BP: as above P: 110s A&Ox3, NAD, pale appearing, diaphoretic CTAB RR, mild tachycardia Abdomen was soft and did not appear distended. Abdomen was appropriately tender with no rebound or guarding and no evidence of acute abdomen. Calves NT A/P: 1. POD#1 s/p repeat C/S 2. Postoperative hypotension: Massive transfusion protocol initiated as concern for intraabdominal hemorrhage. Hgb 10.6->6.3 with greater than expected drop; other labs as ordered by Dr. Rios. Bedside US revealed free fluid which was confirmed by Dr. Rios who had been notified of MD evaluation and presented to bedside. The patient was consented for examination under anesthesia, exploratory laparotomy, and any indicated procedures including possible ligation of uterine vessels and hysterectomy. Risks, benefits, and alternatives were discussed including but not limited to pain, infection, bleeding, injury to other organs like the bladder, bowels, nerves, vessels, need for additional procedures, need of additional transfusion, need of hysterectomy, wound infection and other possible complications. The patient was in agreement with the plan. Anesthesia and OR were notified. The patient will be taken to OR for exploratory laparotomy with consent signed and blood transfusion running. 3. Mild preeclampsia 4. h/o anemia 5. Scoliosis 6. Anxiety/depression 7. h/o anemia Objective Vital Signs Date Time Temp Pulse Resp B/P (MAP) Pulse Ox O2 Delivery O2 Flow Rate FiO2 04/30/17 01:22 110 89/64 (72) 100 04/30/17 01:17 106 91/69 (76) 04/30/17 01:12 118 92/54 (67) 04/30/17 01:00 109 20 100 04/30/17 01:00 93/62 (72) 04/30/17 00:55 90/66 (74) 04/30/17 00:55 18 100 04/30/17 00:55 111 04/30/17 00:50 112 106/63 (77) 04/30/17 00:50 106/63 (77) 04/30/17 00:50 112 04/30/17 00:44 106/60 (75) 04/30/17 00:40 108 04/30/17 00:40 102/51 (68) 04/30/17 00:37 83/69 (74) 04/30/17 00:37 83.6 04/30/17 00:30 85/63 (70) 04/30/17 00:00 98.1 120 20 135/68 (90) 98 04/29/17 20:00 98.2 127 20 135/81 (99) 96 04/29/17 18:30 97.4 96 16 139/81 (100) 99 04/29/17 18:00 84 20 131/78 (95) 100 04/29/17 17:45 90 18 138/82 (100) 04/29/17 17:45 100 04/29/17 17:30 92 17 137/76 (96) 99 04/29/17 17:15 92 20 96 04/29/17 17:15 134/75 (94) 04/29/17 17:00 95 17 133/74 (93) 97 04/29/17 16:45 93 14 126/78 (94) 04/29/17 16:45 97 04/29/17 16:30 96 14 128/73 (91) 99 04/29/17 16:30 98.8 04/29/17 12:30 104 116/77 (90) 04/29/17 12:15 103 118/73 (88) 04/29/17 12:00 101 124/72 (89) 04/29/17 11:45 100 119/73 (88) 04/29/17 11:30 119 124/85 (98) 04/29/17 11:29 107 115/88 (97) 04/29/17 10:45 18 04/29/17 10:30 120 120/101 (107) 04/29/17 10:26 117 129/96 (107) Result Diagram: 04/30/178 04/30/17 0108 Coretta Dennis MD Apr 30, 2017 02:29
[2017-04-30] MEDS ORDERED: CEFAZOLIN INJ 2,000 MG in SODIUM CHLORIDE 0.9% INJ 100 ML IV SCH (02:30)
[2017-04-30] MEDS ORDERED: OXYTOCIN 30 UNITS-500ML PREMIX 500 ML IV PRN ×2 (02:30→14:00)
[2017-04-30] MEDS ORDERED: OXYTOCIN 10 UNIT/ML AMP ONE (03:12)
--- NOTE | 2017-04-30 03:58 | PD.OP ---
Operative Report Date of Surgery: Apr 30, 2017 Preoperative Diagnosis: (1) Delivered by section (2) Significant drop in hemoglobin (3) Nontraumatic rectus hematoma (4) delivery delivered same Postoperative Diagnosis: same Procedure: exploratory laparotomy evacuation of rectus muscle hematoma and hematoperitoneum Anesthesia: GET Surgeon: Coretta Contreras Label Folder(s): OR staff Resident Surgeon: dictated Operation and Findings: Kelsy Gordillo MD Apr 30, 2017 03:58
[2017-04-30] MEDS ORDERED: SIMETHICONE 80 MG CHEWABLE TAB PO PRN (04:00)
[2017-04-30] MEDS ORDERED: DOCUSATE SODIUM 50 MG/SENNA 8.6 MG TAB PO PRN (04:00)
[2017-04-30] MEDS ORDERED: SODIUM CHLORIDE 0.9% FLUSH 10 ML FLUSH IV FLUSH PRN (04:00)
[2017-04-30] MEDS ORDERED: oxyCODONE/ACETAMINOPHEN 5 MG/325 MG TAB PO PRN (04:00)
[2017-04-30] MEDS ORDERED: ACETAMINOPHEN 1000 MG/100 ML 100 ML IV ONE (04:00)
[2017-04-30] MEDS ORDERED: ONDANSETRON HCL 4 MG/2 ML VIAL IV PUSH PRN (04:00)
[2017-04-30] MEDS ORDERED: OXYTOCIN 30 UNITS-500ML PREMIX 500 ML IV ONE (04:00)
[2017-04-30] MEDS ORDERED: MEPERIDINE HCL 25 MG/ML VIAL ONE (04:06)
[2017-04-30] MEDS ORDERED: MORPHINE SULFATE 4 MG/ML INJ ONE (04:11)
[2017-04-30] MEDS ORDERED: DO NOT ADM ANY ANTICOAGULANT DRUGS PRN (04:30)
--- NOTE | 2017-04-30 05:05 | MP ---
cc: Kelsy Rios MD DATE OF OPERATION: 04/30/2017 PREOPERATIVE DIAGNOSIS: Eight hours post repeat section with a surgical abdomen and oliguria and drop in hemoglobin. POSTOPERATIVE DIAGNOSIS: Rectus muscle hematoma and secondary hemoperitoneum. PROCEDURE: Exploratory laparotomy, evacuation of hematoma of rectus muscle and hemoperitoneum. SURGEON: Kelsy Rios MD, and Christine Dennis MD ANESTHESIA: General endotracheal. FINDINGS: Exam at bedside revealed a pale, diaphoretic female with pulse over 100, blood pressures 80s/60s, painful abdomen, oliguria, and on ultrasound, free fluid was noted in the abdomen up by the liver. Upon entering the incision, the majority of the clot was actually on top of the rectus muscle and then nonclotted blood was in the abdominal cavity, having spread from the bleed in the rectus muscle. The liver was carefully evaluated and not fractured. Uterus was intact, hemostatic. There were no peritoneal surfaces that were considered raw or bleeding, and the broad ligament on either side was clean. The rectus muscle had multiple areas of oozing and was plicated in numerous areas to reduce the oozing. She was given 2 units of blood prior to the OR, and she will receive a third unit here in postop. DESCRIPTION OF PROCEDURE: The patient was evaluated at the bedside as described, consented for exploratory laparotomy, and taken up to the OR. She was taken directly to room 8, placed under general endotracheal anesthesia. After a timeout, she was prepped and draped in the usual sterile fashion. Sequentials were placed on. She already had a Abrams. She did receive 2 grams of Ancef. The incision was opened up and immediately a large amount of clot was identified throughout the rectus muscle. This was evacuated and the peritoneal cavity was then carefully explored, showing an intact liver, intact uterus, intact bladder, and some clot in the space of Retzius and then lots of nonclotted blood up under the liver and diaphragm. This was all evacuated and irrigated with pull suction, and systematic evaluation of all 4 quadrants confirmed the lack of active bleeding within the peritoneal cavity. The rectus muscle was carefully evaluated and multiple areas of oozing were noted, with the probable bleeding from what appeared to be a branch of the right inferior epigastric that was ligated. The rectus muscle was then reapproximated gently to prevent a rectus diastasis and again irrigation was performed. The fascia was closed with #1 Vicryl in a non-interlocking fashion. The subcutaneous layer was closed with 3-0 plain and then the skin was closed with 4-0 Vicryl on a Kaden needle. ESTIMATED BLOOD LOSS: 1200 mL. Sponge, instrument and needle counts were correct. She tolerated the procedure well and went to the recovery room in stable condition. Kelsy Rios MD PPC/SM , 04:07 AM , 05:04 AM
[2017-04-30 07:30] LABS: AUTOMATED NEUTROPHIL # 7.9 TH/MM3 (1.8-7.7); BASOPHIL % 0.3 % (0.0-2.0); HEMATOCRIT 25.3 % (35.0-46.0); HEMOGLOBIN 8.7 GM/DL (11.6-15.3); LYMPH % 10.1 % (9.0-44.0); MEAN CELL VOLUME 78.6 FL (80.0-100.0); MEAN CORPUSCULAR HGB CONC 34.3 % (32.0-36.0); MEAN PLATELET VOLUME 9.8 FL (7.0-11.0); MONO % 4.9 % (0.0-8.0); MONOCYTE # 0.5 TH/MM3 (0-0.9); NEUT % 84.7 % (16.0-70.0); PLATELET COUNT 116 TH/MM3 (150-450); RED BLOOD COUNT 3.22 MIL/MM3 (4.00-5.30); RED CELL DISTRIBUTION WIDTH 20.2 % (11.6-17.2); WHITE BLOOD COUNT 9.4 TH/MM3 (4.0-11.0)
--- NOTE | 2017-04-30 07:55 | HHI.OB ---
Subjective Post Operative Day: 1 Remarks resting 4 hours post return to the OR for rectus muscle hematoma and hematoperitoneum Objective Vitals/I&O Vital Signs Date Time Temp Pulse Resp B/P (MAP) Pulse Ox O2 Delivery O2 Flow Rate FiO2 04/30/17 06:00 84 18 121/76 (91) 100 04/30/17 06:00 98.4 04/30/17 04:45 97 11 131/71 (91) 100 Nasal Cannula 3 04/30/17 04:30 104 11 140/64 (89) 98 Nasal Cannula 3 04/30/17 04:15 98.3 123 11 137/63 (87) 100 Nasal Cannula 3 04/30/17 04:15 98.3 108 14 152/71 100 04/30/17 02:07 114 20 97/80 (86) 04/30/17 02:07 100 04/30/17 02:00 116 18 112/75 (87) 100 04/30/17 01:55 116 21 100 04/30/17 01:55 112/73 (86) 04/30/17 01:47 20 04/30/17 01:47 100 04/30/17 01:47 125 112/73 (86) 04/30/17 01:42 119 20 129/82 (98) 100 04/30/17 01:22 110 89/64 (72) 100 04/30/17 01:17 106 91/69 (76) 04/30/17 01:12 118 92/54 (67) 04/30/17 01:00 109 20 100 04/30/17 01:00 93/62 (72) 04/30/17 00:55 90/66 (74) 04/30/17 00:55 18 100 04/30/17 00:55 111 04/30/17 00:50 112 106/63 (77) 04/30/17 00:50 106/63 (77) 04/30/17 00:50 112 04/30/17 00:44 106/60 (75) 04/30/17 00:40 108 04/30/17 00:40 102/51 (68) 04/30/17 00:37 83/69 (74) 04/30/17 00:37 83.6 04/30/17 00:30 85/63 (70) 04/30/17 00:00 98.1 120 20 135/68 (90) 98 04/29/17 21:45 20 04/29/17 20:00 98.2 127 20 135/81 (99) 96 04/29/17 18:30 97.4 96 16 139/81 (100) 99 04/29/17 18:00 84 20 131/78 (95) 100 04/29/17 17:45 90 18 138/82 (100) 04/29/17 17:45 100 04/29/17 17:30 92 17 137/76 (96) 99 04/29/17 17:15 92 20 96 04/29/17 17:15 134/75 (94) 04/29/17 17:00 95 17 133/74 (93) 97 04/29/17 16:45 93 14 126/78 (94) 04/29/17 16:45 97 04/29/17 16:30 96 14 128/73 (91) 99 04/29/17 16:30 98.8 04/29/17 12:30 104 116/77 (90) 04/29/17 12:15 103 118/73 (88) 04/29/17 12:00 101 124/72 (89) 04/29/17 11:45 100 119/73 (88) 04/29/17 11:30 119 124/85 (98) 04/29/17 11:29 107 115/88 (97) 04/29/17 10:45 18 04/29/17 10:30 120 120/101 (107) 04/29/17 10:26 117 129/96 (107) Intake & Output 04/30/17 04/30/17 07:00 19:00 Intake Total 1800 ml Output Total 160 ml 100 ml Balance -160 ml 1700 ml Other 1800 ml Output Urine Total 160 ml Estimated Blood Loss 100 ml Result Diagram: 04/30/17 0723 04/30/17 0108 Objective Remarks GENERAL: Well-nourished, well-developed patient. CARDIOVASCULAR: Regular rate and rhythm without murmurs, gallops, or rubs. RESPIRATORY: Breath sounds equal bilaterally. No accessory muscle use. ABDOMEN/GI: Abdomen soft, non-tender, bowel sounds present. bandage: Clean, dry and intact. Fundus: Firm, non-tender at umbilicus. GENITOURINARY: Light to moderate bleeding. EXTREMITIES: No cyanosis or edema, non-tender, without signs of DVT. Medications and IVs Current Medications Medications (Trade) Dose Ordered Sig/Louise Route Start Time Stop Time Status Last Admin (Tylenol) 650 mg Q6H PRN PO 04/29/17 16:30 (Motrin) 600 mg Q6H PRN PO 04/29/17 16:30 (Ambien) 5 mg HS PRN PO 04/29/17 21:00 (Nasalcrom Tommy Spr) 2 spray TID EACH NARE 04/29/17 18:00 04/29/17 21:41 (Tamiflu) 75 mg BID PO 04/29/17 21:00 04/29/17 21:41 Non-Formulary Medication 1 cap DAILY PO 04/30/17 09:00 UNV Miscellaneous Information NO SYSTEMIC NARCOTICS TO BE GIVEN FO... UNSCH PRN .XX 04/30/17 01:45 05/01/17 01:44 (Narcan Inj) 0.4 mg UNSCH PRN IV PUSH 04/30/17 01:45 05/01/17 01:44 (Benadryl Inj) 25 mg Q6H PRN IV PUSH 04/30/17 01:45 05/01/17 01:44 (Benadryl) 50 mg Q6H PRN PO 04/30/17 01:45 05/01/17 01:44 Miscellaneous Information ALL NURSING DEPARTMENTS UNSCH PRN .XX 04/30/17 01:45 05/01/17 01:44 Cefazolin Sodium 2000 mg/Sodium Chloride 120 ml @ 240 mls/hr ELEVATOR SERVICE TECHNICIAN IV 04/30/17 02:30 04/30/17 18:30 Lactated Ringer's 1,000 ml @ 100 mls/hr Q10H IV 04/30/17 09:00 05/01/17 04:59 Oxytocin 500 ml @ 100 mls/hr ONCE ONCE IV 04/30/17 04:00 04/30/17 08:59 Oxytocin 500 ml @ 100 mls/hr UNSCH X1 PRN IV 04/30/17 14:00 05/01/17 13:59 (NS Flush) 2 ml BID IV FLUSH 04/30/17 09:00 (NS Flush) 2 ml UNSCH PRN IV FLUSH 04/30/17 04:00 (Mylicon Chew) 80 mg QID PRN PO 04/30/17 04:00 (Percocet 5-325 Mg) 1 tab Q4H PRN PO 04/30/17 04:00 (Percocet 5-325 Mg) 2 tab Q4H PRN PO 04/30/17 04:00 (Gabriella-Colace) 2 tab Q12H PRN PO 04/30/17 04:00 (M-M-R Ii Inj) 0.5 ml ONCE ONCE SQ 05/01/17 16:00 05/01/17 16:01 (Boostrix Inj) 0.5 ml ONCE ONCE IM 05/01/17 16:00 05/01/17 16:01 (Zofran Inj) 4 mg Q6H PRN IV PUSH 04/30/17 04:00 Miscellaneous Information ALL NURSING DEPARTME... UNSCH PRN .XX 04/30/17 04:30 05/01/17 04:29 Cefazolin Sodium 1000 mg/Sodium Chloride 100 ml @ 200 mls/hr Q8H IV 04/30/17 11:00 04/30/17 11:29 Assessment/Plan Assessment and Plan hgb 8.3 after 3 units. oliguric still normotensive watch venifer cbc in am Tuesday Kelsy Rios MD Apr 30, 2017 07:55
[2017-04-30] MEDS ORDERED: IRON SUCROSE 100 MG/5 ML VIAL IV PUSH ONE (09:00)
[2017-04-30] MEDS: OSELTAMIVIR PHOSPHATE 75 MG CAP PO SCH ×2 (09:00→19:31)
[2017-04-30] MEDS: LACTATED RINGER'S 1000 ML INJ 1,000 ML IV SCH ×2 (09:00→19:00)
[2017-04-30] MEDS: CROMOLYN SODIUM 5.2 MG/ACT 13 ML NASAL SPRAY EACH NARE SCH ×3 (09:00→18:00)
[2017-04-30] MEDS: PRENATAL VITAMIN CHEWABLE TAB PO SCH (09:24)
[2017-04-30] MEDS ORDERED: IRON SUCROSE INJ 200 MG in SODIUM CHLORIDE 0.9% INJ 100 ML IV ONE (10:00)
[2017-04-30] MEDS: IBUPROFEN 600 MG TAB PO PRN ×2 (11:18→19:14)
[2017-04-30] MEDS: oxyCODONE/ACETAMINOPHEN 5 MG/325 MG TAB PO PRN (11:19)
[2017-04-30] MEDS ORDERED: ROCURONIUM INJ 50 MG/5 ML SYRINGE IV PUSH ONE (12:00)
[2017-04-30] MEDS ORDERED: LIDOCAINE HCL 1% PF 5 ML SYRINGE OTHER ONE (12:00)
[2017-04-30] MEDS ORDERED: ceFAZolin INJ 1,000 MG VIAL IV ONE (12:00)
[2017-04-30] MEDS ORDERED: PROPOFOL 200 MG/20 ML AMP IV ONE (12:00)
[2017-04-30] MEDS ORDERED: SUCCINYLCHOLINE CHLORIDE 200 MG/10 ML VIAL IV ONE (12:00)
[2017-04-30] MEDS ORDERED: SODIUM CHLOR 0.9% 1000 ML INJ 1,000 ML IV ONE (12:00)
[2017-04-30] MEDS ORDERED: ONDANSETRON HCL 4 MG/2 ML VIAL IV PUSH ONE (12:00)
[2017-04-30] MEDS ORDERED: DEXAMETHASONE SOD PHOS 4 MG/ML VIAL IV ONE (12:00)
[2017-04-30] MEDS ORDERED: DIPHTH/TETANUS/ACEL PERTUSSIS (BOOSTER) 0.5 ML VIAL/PFS IM ONE (16:00)
[2017-04-30] MEDS ORDERED: MEASLES, MUMPS, RUBELLA VACCINE 0.5 ML VIAL SQ ONE (16:00)
--- NOTE | 2017-04-30 19:12 | EKG ---
Date Performed: 04/30/2017 Time Performed: 01:31:57 PTAGE: 27 years EKG: SINUS TACHYCARDIA ABNORMAL RHYTHM ECG NO PREVIOUS TRACING DOCTOR: Cadence Zaragoza Interpretating Date/Time 04/30/2017 19:11:33
[2017-04-30] MEDS: SODIUM CHLORIDE 0.9% FLUSH 10 ML FLUSH IV FLUSH SCH (19:30)
[2017-05-01 04:39] VITALS: BP 115/75; PULSE 91; RESP 18; TEMP 97.4
[2017-05-01] MEDS: IBUPROFEN 600 MG TAB PO PRN ×3 (04:39→21:12)
[2017-05-01] MEDS: oxyCODONE/ACETAMINOPHEN 5 MG/325 MG TAB PO PRN ×4 (04:40→21:12)
[2017-05-01 05:53] LABS: AUTOMATED NEUTROPHIL # 4.7 TH/MM3 (1.8-7.7); BASOPHIL % 0.4 % (0.0-2.0); EOSINOPHIL # 0.1 TH/MM3 (0-0.4); EOSINOPHIL % 0.7 % (0.0-4.0); HEMATOCRIT 21.9 % (35.0-46.0); HEMOGLOBIN 7.5 GM/DL (11.6-15.3); LYMPH % 28.1 % (9.0-44.0); MEAN CELL VOLUME 77.8 FL (80.0-100.0); MEAN CORPUSCULAR HEMOGLOBIN 26.5 PG (27.0-34.0); MEAN CORPUSCULAR HGB CONC 34.1 % (32.0-36.0); MONO % 4.8 % (0.0-8.0); MONOCYTE # 0.3 TH/MM3 (0-0.9); PLATELET COUNT 126 TH/MM3 (150-450); RED BLOOD COUNT 2.82 MIL/MM3 (4.00-5.30); WHITE BLOOD COUNT 7.1 TH/MM3 (4.0-11.0)
[2017-05-01 07:09] LABS: BICARBONATE 25.6 MEQ/L (21.0-32.0); CALCIUM 7.5 MG/DL (8.5-10.1); CREATININE 0.51 MG/DL (0.50-1.00)
--- NOTE | 2017-05-01 07:33 | HHI.OB ---
Subjective Post Operative Day: 1 Remarks Feeling stronger belly painful lochia not foul or excessive Objective Vitals/I&O Vital Signs Date Time Temp Pulse Resp B/P (MAP) Pulse Ox O2 Delivery O2 Flow Rate FiO2 05/01/17 04:39 97.4 91 18 115/75 (88) 04/30/17 20:47 97.6 95 19 113/61 (78) 04/30/17 15:40 97.5 93 18 113/69 (84) 04/30/17 11:03 97.6 93 18 111/72 (85) 99 Result Diagram: 05/01/1752005/01/17520 Objective Remarks GENERAL: Well-nourished, well-developed patient. CARDIOVASCULAR: Regular rate and rhythm without murmurs, gallops, or rubs. RESPIRATORY: Breath sounds equal bilaterally. No accessory muscle use. ABDOMEN/GI: Abdomen soft, non-tender, bowel sounds present. bandage: Clean, dry and intact. Fundus: Firm, non-tender at umbilicus. GENITOURINARY: Light to moderate bleeding. EXTREMITIES: No cyanosis or edema, non-tender, without signs of DVT. Medications and IVs Current Medications Medications (Trade) Dose Ordered Sig/Louise Route Start Time Stop Time Status Last Admin (Tylenol) 650 mg Q6H PRN PO 04/29/17 16:30 (Motrin) 600 mg Q6H PRN PO 04/29/17 16:30 05/01/17 04:39 (Ambien) 5 mg HS PRN PO 04/29/17 21:00 (Nasalcrom Tommy Spr) 2 spray TID EACH NARE 04/29/17 18:00 04/30/17 09:00 (Tamiflu) 75 mg BID PO 04/29/17 21:00 04/29/17 21:41 Non-Formulary Medication 1 cap DAILY PO 04/30/17 09:00 UNV Oxytocin 500 ml @ 100 mls/hr UNSCH X1 PRN IV 04/30/17 14:00 05/01/17 13:59 (NS Flush) 2 ml BID IV FLUSH 04/30/17 09:00 (NS Flush) 2 ml UNSCH PRN IV FLUSH 04/30/17 04:00 (Mylicon Chew) 80 mg QID PRN PO 04/30/17 04:00 (Percocet 5-325 Mg) 1 tab Q4H PRN PO 04/30/17 04:00 05/01/17 04:40 (Percocet 5-325 Mg) 2 tab Q4H PRN PO 04/30/17 04:00 04/30/17 19:14 (Gabriella-Colace) 2 tab Q12H PRN PO 04/30/17 04:00 05/01/17 04:39 (M-M-R Ii Inj) 0.5 ml ONCE ONCE SQ 05/01/17 16:00 05/01/17 16:01 (Boostrix Inj) 0.5 ml ONCE ONCE IM 05/01/17 16:00 05/01/17 16:01 (Zofran Inj) 4 mg Q6H PRN IV PUSH 04/30/17 04:00 Assessment/Plan Assessment and Plan hgb 8.3 after 3 units. oliguric still normotensive watch venifer cbc in tuesday05/01/17 Hgb 7.1 platelets 126 has not voided since wright DC iv fluids leave one saline lock encourage ambulation labs in Kelsy Brand MD May 01, 2017 07:33
[2017-05-01 08:40] VITALS: BP 127/75; PULSE 86; RESP 18; TEMP 97.5
[2017-05-01] MEDS: OSELTAMIVIR PHOSPHATE 75 MG CAP PO SCH ×2 (09:00→21:00)
[2017-05-01] MEDS: CROMOLYN SODIUM 5.2 MG/ACT 13 ML NASAL SPRAY EACH NARE SCH ×2 (11:02→18:00)
[2017-05-01] MEDS: PRENATAL VITAMIN CHEWABLE TAB PO SCH (11:02)
[2017-05-01 15:28] VITALS: BP 133/69; PULSE 85; RESP 18; TEMP 97.4
[2017-05-01] MEDS ORDERED: DIPHTH/TETANUS/ACEL PERTUSSIS (BOOSTER) 0.5 ML VIAL/PFS IM ONE (16:00)
[2017-05-01] MEDS ORDERED: MEASLES, MUMPS, RUBELLA VACCINE 0.5 ML VIAL SQ ONE (16:00)
[2017-05-01] MEDS: SODIUM CHLORIDE 0.9% FLUSH 10 ML FLUSH IV FLUSH SCH (19:00)
[2017-05-01 21:10] VITALS: BP 141/76; PULSE 90; RESP 16; TEMP 98.3
[2017-05-02] MEDS: IBUPROFEN 600 MG TAB PO PRN ×2 (05:27→13:17)
[2017-05-02] MEDS: oxyCODONE/ACETAMINOPHEN 5 MG/325 MG TAB PO PRN (05:28)
[2017-05-02 07:11] LABS: HEMATOCRIT 23.9 % (35.0-46.0); HEMOGLOBIN 8.1 GM/DL (11.6-15.3); MEAN CELL VOLUME 78.6 FL (80.0-100.0); MEAN CORPUSCULAR HEMOGLOBIN 26.5 PG (27.0-34.0); MEAN CORPUSCULAR HGB CONC 33.7 % (32.0-36.0); PLATELET COUNT 154 TH/MM3 (150-450); RED BLOOD COUNT 3.05 MIL/MM3 (4.00-5.30); RED CELL DISTRIBUTION WIDTH 20.4 % (11.6-17.2); WHITE BLOOD COUNT 7.4 TH/MM3 (4.0-11.0)
[2017-05-02 08:18] VITALS: BP 121/73; PULSE 82; RESP 18; TEMP 97.9
[2017-05-02] MEDS: SODIUM CHLORIDE 0.9% FLUSH 10 ML FLUSH IV FLUSH SCH (09:00)
[2017-05-02] MEDS: OSELTAMIVIR PHOSPHATE 75 MG CAP PO SCH (09:00)
[2017-05-02] MEDS: PRENATAL VITAMIN CHEWABLE TAB PO SCH (09:04)
[2017-05-02] MEDS: CROMOLYN SODIUM 5.2 MG/ACT 13 ML NASAL SPRAY EACH NARE SCH (09:04)
--- NOTE | 2017-05-02 09:39 | HHI.DS ---
Admission Date Apr 29, 2017 at 10:01 Discharge Date: May 02, 2017 Admitting Diagnosis 37 WEEK GESTATION PREVIOUS C SECTION AT 29 WEEKS FOR SEVERE PRE-ECLAMPSIA MILD PRE-ECLAMPSIA Diagnosis: Delivery Date: Apr 29, 2017 : Repeat Reason: 37 WEEKS MILD PE-ECLAMPSIA REPEAT : Male Brief History PT ADMITTED FOR MILD PRE-ECLAMPSIA AT 37 WEEKS PREVIOUS C SECTION FOR SEVERE PRE-ECLAMPSIA REPEAT C SECTION SCHEDULED Hospital Course REPEAT C SECTION 8 HOURS POST SURGERY PT RETURNED TO THE OR FOR RECTUS MUSCLE HEMATOMA AND SECONDARY HEMOPERITONEUM PT WAS TRANSFUSED WITH 3 UNITS OF BLOOD VENOFER GIVEN, VITALS AND LABS STABLE DC HOME Pt Condition on Discharge: Good Discharge Disposition: Discharge Home Discharge Instructions Diet Instructions: As Tolerated, No Restrictions Additional Diet Instructions: Drink at least 8 - 16 oz bottles of water a day Activities You Can Perform: Shower Only-No Bath Activities to Avoid: Prolonged Standing, Strenuous Activity, Sexual Activity Additional Activity Instruc.: No driving until off pain medications Do not lift anything heavier than your baby in an carrier Follow up Referrals: PRODUCTION CONTROL ANALYST - 1 Week @ [facility] Brionna Zuniga May 02, 2017 09:39
--- NOTE | 2017-05-02 09:50 | HHI.OB ---
Subjective Post Operative Day: 3 Objective Vitals/I&O Vital Signs Date Time Temp Pulse Resp B/P (MAP) Pulse Ox O2 Delivery O2 Flow Rate FiO2 05/02/17 08:18 97.9 18 05/02/17 08:18 82 121/73 (89) 05/01/17 21:10 98.3 90 16 141/76 (97) 05/01/17 15:28 97.4 85 18 133/69 (90) Result Diagram: 05/02/17 0620 05/01/17 0521 Objective Remarks GENERAL: Well-nourished, well-developed patient. CARDIOVASCULAR: Regular rate and rhythm without murmurs, gallops, or rubs. RESPIRATORY: Breath sounds equal bilaterally. No accessory muscle use. ABDOMEN/GI: Abdomen soft, non-tender, bowel sounds present. incision: Clean, dry and intact. Fundus: Firm, non-tender at umbilicus. GENITOURINARY: Light to moderate bleeding. EXTREMITIES: No cyanosis, non-tender, without signs of DVT., +1 edema to bilateral extremities Medications and IVs Current Medications Medications (Trade) Dose Ordered Sig/Louise Route Start Time Stop Time Status Last Admin (Tylenol) 650 mg Q6H PRN PO 04/29/17 16:30 (Motrin) 600 mg Q6H PRN PO 04/29/17 16:30 05/02/17 05:27 (Ambien) 5 mg HS PRN PO 04/29/17 21:00 (Nasalcrom Tommy Spr) 2 spray TID EACH NARE 04/29/17 18:00 05/02/17 09:04 (Tamiflu) 75 mg BID PO 04/29/17 21:00 04/29/17 21:41 Non-Formulary Medication 1 cap DAILY PO 04/30/17 09:00 UNV (NS Flush) 2 ml BID IV FLUSH 04/30/17 09:00 (NS Flush) 2 ml UNSCH PRN IV FLUSH 04/30/17 04:00 (Mylicon Chew) 80 mg QID PRN PO 04/30/17 04:00 (Percocet 5-325 Mg) 1 tab Q4H PRN PO 04/30/17 04:00 05/02/17 05:28 (Percocet 5-325 Mg) 2 tab Q4H PRN PO 04/30/17 04:00 04/30/17 19:14 (Gabriella-Colace) 2 tab Q12H PRN PO 04/30/17 04:00 05/01/17 04:39 (Zofran Inj) 4 mg Q6H PRN IV PUSH 04/30/17 04:00 Iron Sucrose 200 mg/Sodium Chloride 110 ml @ 110 mls/hr ONCE ONCE IV 05/02/17 11:00 05/02/17 11:59 Assessment/Plan Problem List: (1) Delivered by section ICD Codes: Z38.01 - Single liveborn infant, delivered by Assessment and Plan pt doing well lance well managed with oral pain medication ambulating around the room without difficulty hgb 8.1, labs and vital signs stable will give another dose of Venofer before dc breast feeding Discharge Planning dc home today Attending Attestation dr teresa did physical exam and we were both present in room Brionna Zuniga May 02, 2017 09:50
--- NOTE | 2017-05-02 09:59 | MP ---
cc: Alesha Vang MD, R John MD DATE OF OPERATION: 04/29/2017 PREOPERATIVE DIAGNOSIS: 1. Intrauterine at 37 weeks. 2. Mild preeclampsia. 3. Previous section. POSTOPERATIVE DIAGNOSIS: 1. Intrauterine at 37 weeks. 2. Mild preeclampsia. 3. Previous section. PROCEDURE PERFORMED: Repeat low transverse section. ANESTHESIA: Spinal. SURGEON: Alesha Vang MD FINDINGS: A normal male , Apgars 9 and 9, weight 6 pounds 11 ounces. Normal uterus, normal tubes, normal ovaries. COMPLICATIONS: None. COUNTS: Correct. ESTIMATED BLOOD LOSS: 600 mL FLUIDS: Crystalloids. DISPOSITION: The patient tolerated the procedure well and went to the recovery room in good condition. INDICATIONS FOR PROCEDURE: This is a patient who has been in and out of the hospital for preeclampsia. She was noted to be preeclamptic last week. Her protein to creatinine ratio was quite high. She has a history of severe preeclampsia with a delivery at 29 weeks. She comes in to the hospital today for a repeat section early due to preeclampsia. PROCEDURE IN DETAIL The patient was taken to the operating room identified by name band and verbally. She was given a spinal anesthetic. A Abrams catheter was inserted. She was prepped and draped for section. The old Pfannenstiel incision was removed and excised completely and the incision was taken down to the fascia. The fascia was taken off the rectus muscle by blunt and sharp dissection. The peritoneum was entered under direct vision without complication. The incision was extended with care to avoid the urinary bladder. A bladder blade was placed and a bladder flap created over the lower uterine segment which was well-developed. The uterus was then scored in a transverse manner along the lower uterine segment and taken down in the midline until the uterine cavity was entered. The incision was extended with the surgeon's fingers. The vertex was grasped and delivered through the incision without difficulty. The hypopharynx and nasopharynx were suctioned. The remainder of the infant was delivered. The cord was doubly clamped and cut and the infant handed to the resuscitation team that was present. Cord blood was obtained. The placenta was delivered manually without difficulty. The uterus was curetted twice with a wet lap. The uterine incision was repaired with 2-0 Vicryl a running locking fashion, the second layer imbricating the first. The cul-de-sac and gutters were cleaned of blood and debris with a large amount of irrigation. The uterus was delivered back into the abdomen. The incision was again inspected and was hemostatic. The rectus muscles were reapproximated with 0 Vicryl in an interrupted fashion. The fascia was repaired with 0 Vicryl from lateral to midline bilaterally in a running fashion. The subcutaneous tissue was repaired with 3-0 Vicryl. The skin was repaired with 4-0 Monocryl in a subcuticular manner. Steri-Strips were applied. The wound was sterilely dressed. She tolerated the procedure well and went to the recovery room in good condition. R. Alejandro Vang MD RJV/SA/ , 04:35 PM , 04:56 PM
[2017-05-02] MEDS ORDERED: IRON SUCROSE INJ 200 MG in SODIUM CHLORIDE 0.9% INJ 100 ML IV ONE (11:00)
[2017-05-02] MEDS ORDERED: IBUP-232 PO (12:23)
[2017-05-02] MEDS ORDERED: OXYC1TAB63 PO (12:23)
== END 2017-05-02 15:15 | disposition home or self-care (01) | DRG 765 ==
LOC: H2EB 10:01 → H1EA 18:09
PROVIDERS: ADMIT Obstetrics & Gynecology; ATTEND Obstetrics & Gynecology
PROC: 10D00Z1 Extraction of Products of Conception, Low, Open Approach (ICD-10-PCS; principal; 2017-04-29)
PROC: 0KCK0ZZ Extirpation of Matter from Right Abdomen Muscle, Open Approach (ICD-10-PCS; 2017-04-30)
PROC: 04L20ZZ Occlusion of Gastric Artery, Open Approach (ICD-10-PCS; 2017-04-30)
PROC: 0W9G0ZZ Drainage of Peritoneal Cavity, Open Approach (ICD-10-PCS; 2017-04-30)
PROC: 30233N1 Transfusion of Nonautologous Red Blood Cells into Peripheral Vein, Percutaneous Approach (ICD-10-PCS; 2017-04-30)
DX: O14.04 Mild to moderate pre-eclampsia, complicating childbirth (principal); K66.1 Hemoperitoneum; M96.841 Postprocedural hematoma of a musculoskeletal structure following other procedure; M41.9 Scoliosis, unspecified; O99.344 Other mental disorders complicating childbirth; O34.211 Maternal care for low transverse scar from previous cesarean delivery; F32.9 Major depressive disorder, single episode, unspecified; F41.9 Anxiety disorder, unspecified; O99.02 Anemia complicating childbirth; D64.9 Anemia, unspecified; Z3A.37 37 weeks gestation of pregnancy; Z37.0 Single live birth; Y83.8 Other surgical procedures as the cause of abnormal reaction of the patient, or of later complication, without mention of misadventure at the time of the procedure; R60.0 Localized edema; M79.89 Other specified soft tissue disorders; R05 Cough; R07.2 Precordial pain; O99.513 Diseases of the respiratory system complicating pregnancy, third trimester; J06.9 Acute upper respiratory infection, unspecified; Z79.899 Other long term (current) drug therapy
CPT/HCPCS: 36415; 36430; 59025; 80048; 80053; 80307; 81001; 82550; 82570; 84156; 84484; 84550; 85014; 85018; 85025; 85027; 85384; 85610; 85730; 86850; 86900; 86901; 86920; 87086; 90715; 93005; 99285; G0378; J0131; J0330; J0690; J1100; J1756; J1885; J2175; J2250; J2270; J2274; J2370; J2405; J2590; J3010; J7030; J7120; P9016

== ENCOUNTER 2017-05-07 00:06 | Emergency (ER) | payer OTHER, MEDICAID ==
[~2017-05-07] VITALS: Ht 162.6 cm; Wt 108.0 kg
[~2017-05-07 00:06] MED LIST changes: +IBUP-232 PO; +OXYC1TAB63 PO
[2017-05-07 00:25] VITALS: BP 144/59; PULSE 72; RESP 16; TEMP 97.5; O2SAT 100
[2017-05-07] MEDS ORDERED: SULFAMETHOXAZOLE-TRIMETHOPRIM DS 800-160 MG TAB PO ONE (01:00)
[2017-05-07] MEDS ORDERED: BACT800T5 PO (01:01)
--- NOTE | 2017-05-07 01:01 | PD ---
HPI Chief Complaint: Wound/Suture/Staple Re-Check Time Seen by Provider: 00:43 Travel History International Travel<30 days: No Contact w/Intl Traveler<30days: No Traveled to known affect area: No History of Present Illness HPI 27-year-old female complains of redness and drainage from the surgical wound. Patient status post repeated 8 days ago. Patient has history of preeclampsia. Patient developed rectus muscle hematoma and secondary hemoperitoneum post . Patient returned to the OR for that. Patient was discharged home 5 days ago. Patient's breast-feeding. Patient noticed a small opening small opening of the surgical wound on the right side of the wound yesterday. Patient states that she noticed small drainage from the area today. Patient states that she has some burning pain around the surgical wound. Patient denies any fever chills. PFSH Past Medical History Cancer: No Cardiovascular Problems: No Diminished Hearing: No Endocrine: No Gastrointestinal Disorders: Yes (ACID REFLUX) Genitourinary: No Hepatitis: No Hiatal Hernia: No Immune Disorder: No Musculoskeletal: Yes (SCLOIOSIS) Neurologic: No Psychiatric: Yes (ANXIETY/DEPRESSION) Reproductive: Yes (IUD CAUSING SYMPTOMS) Respiratory: No Immunizations Current: Yes Pneumonia: Yes Tetanus Vaccination: < 5 Years Influenza Vaccination: No ?: Not Menopausal: No : 1 Para: 1 Past Surgical History Abdominal Surgery: No Body Medical Devices: NONE Cardiac Surgery: No Section: Yes Ear Surgery: No Endocrine Surgery: No Eye Surgery: No Genitourinary Surgery: No Gynecologic Surgery: Yes (C SECTION) Oral Surgery: No Thoracic Surgery: No Other Surgery: Yes Social History Alcohol Use: No Tobacco Use: No Substance Use: No Allergies-Medications (Allergen,Severity, Reaction): Coded Allergies: tree and shrub pollen (Verified Allergy, Severe, CONGESTION, ITCHING, 04/26) cat dander (Verified Allergy, Mild, 04/26/17) dog dander (Verified Allergy, Mild, 04/26/17) shellfish derived (Verified Allergy, Unknown, 04/26/17) SWELLING IN THROAT Reported Meds & Prescriptions Reported Meds & Active Scripts Active No Active Prescriptions or Reported Medications Review of Systems General / Constitutional: No: Fever Eyes: No: Visual changes HENT: No: Headaches Cardiovascular: No: Chest Pain or Discomfort Respiratory: No: Shortness of Breath Gastrointestinal: No: Abdominal Pain Genitourinary: No: Dysuria Musculoskeletal: No: Pain Skin: No Rash Neurologic: No: Weakness Psychiatric: No: Depression Endocrine: No: Polydipsia Hematologic/Lymphatic: No: Easy Bruising Physical Exam Narrative GENERAL: Well-nourished, well-developed patient. SKIN: Focused skin assessment warm/dry. HEAD: Normocephalic. EYES: No scleral icterus. No injection or drainage. NECK: Supple, trachea midline. No JVD or lymphadenopathy. CARDIOVASCULAR: Regular rate and rhythm without murmurs, gallops, or rubs. RESPIRATORY: Breath sounds equal bilaterally. No accessory muscle use. GASTROINTESTINAL: Abdomen soft, non-tender, nondistended. MUSCULOSKELETAL: No cyanosis, or edema. BACK: Nontender without obvious deformity. No CVA tenderness. Patient has mild irritation to the right lateral aspect of the surgical wound. No drainage noted. The rest of the wound is healing well. Data Data Last Documented VS Vital Signs Date Time Temp Pulse Resp B/P (MAP) Pulse Ox O2 Delivery O2 Flow Rate FiO2 05/07/17 00:25 97.5 72 16 144/59 (87) 100 Orders Orders Wound Culture And Gram Stain (05/07/17 00:50) Sulfamet-Trimeth Ds 800-160 Mg (Bactrim (05/07/17 01:00) MDM Medical Decision Making Medical Screen Exam Complete: Yes Emergency Medical Condition: Yes Medical Record Reviewed: Yes Differential Diagnosis Differential diagnosis including wound dehiscence, wound infection. Narrative Course 27-year-old female with drainage and small opening of the surgical wound. Status post 8 days ago. Wound culture done today. Bactrim DS 1 tablet p.o. given. Diagnosis Primary Impression: Visit for wound check Additional Impression: Status post Patient Instructions: General Instructions Additional Instructions: Bactrim DS as directed. Dressing as needed. Follow-up with personal physician. Return if worse. Med/Other Pt SpecificInfo: Prescription(s) given Scripts Sulfamethoxazole-Trimethoprim (Bactrim DS) 800-160 Mg Tab 1 TAB PO BID for Infection, #14 TAB 0 Refills Prov: Willem Ornelas MD 05/07/17 Disposition: 01 DISCHARGE HOME Condition: Stable Willem Ornelas MD May 07, 2017 01:01
== END 2017-05-07 01:24 | disposition home or self-care (01) ==
LOC: NEPC 00:06
DX: O90.0 Disruption of cesarean delivery wound (principal); K21.9 Gastro-esophageal reflux disease without esophagitis; F32.9 Major depressive disorder, single episode, unspecified; F41.9 Anxiety disorder, unspecified
CPT/HCPCS: 87070; 99283